=== PATIENT | male | born 1970 | race Caucasian/White ===

== ENCOUNTER → 2018-02-06 10:00 | Outpatient (CLI) | payer BC, SELFPAY ==
--- NOTE | 2018-02-06 10:00 | DT_ITS ---
This patient was seen during an EMR downtime February 03, 2018 - February 10, 2018. This patient may have a combination of paper and electronic documentation or all paper documentation. All documentation is viewable within the e-chart portion of [facility] for each patient visit.
[2018-02-11 03:01] LABS: Anion Gap 7 (5-15); BUN 18 mg/dL (7-18); BUN/Creat Ratio 18.9 RATIO (10-20); Calcium,Total 8.9 mg/dL (8.5-10.1); Chloride 103 mmol/L (98-107); Cholesterol 185 mg/dL (200); Creatinine, Serum 0.95 mg/dL (0.70-1.30); EST Glomerular Filtration Rate 91 mL/min (>60); Est Glom Filt Rate - Afr Amer 110 mL/min (>60); Glucose 88 mg/dL (74-106); High Density Lipoprotein 33 mg/dL; Sodium Level 138 mmol/L (136-145); Triglycerides 416 mg/dL; Very Low Density Lipoprotein 83 mg/dL (5-40)
== END ==
PROVIDERS: Family Provider Family Medicine; PCP Family Medicine; Visit Provider Family Medicine
DX: I10 Essential (primary) hypertension (principal)
CPT/HCPCS: 36415; 80048; 80061

== ENCOUNTER 2019-05-05 05:26 | Observation (INO) | payer OTHER, SELFPAY ==
[2019-05-05] VITALS (12 sets, daily range): BP systolic 107–175; BP diastolic 62–100; PULSE 54–98; RESP 14–18; TEMP 36.3–37.2; O2SAT 9–100; BMI 40.4; BMI 40.2
--- NOTE | 2019-05-05 05:37 | ED.DCSUM_ITS ---
History of Present Illness Chief Complaint: Abd Pain Informant: Patient Narrative: Stated approximately 5 and half hours ago around midnight when he was sleeping he went to use the restroom and felt some abdominal cramping mid abdomen. No nausea vomiting or diarrhea. He said normal bowel movements. No fevers or chills. It actually feels better to push on the area. He tried some Pepto- Bismol but would not go away so he came in for further evaluation. He does not have any pain over his gallbladder. Is never had a previous abdominal surgery. Current severity is mild to moderate. Nothing makes it worse. History of irritable bowel syndrome but does not normally get abdominal pains Past Medical History - Allergies and Home Meds Allergies/Adverse Reactions: Allergies meloxicam [From Mobic] Allergy (Verified 09/24/16 08:33) Hives Penicillins Allergy (Verified 09/24/16 08:33) Unknown Primary Care Physician: Denver Miner MD [Primary Care Provider] - Prior records reviewed: Yes Past Medical History: - - Irritable bowel syndrome, high cholesterol Surgical History: noncontributory Lives: Spouse/ Significant Other Smoking Status: Never smoker Alcohol: None Drugs: None Review of Systems General: Denies: Chills, Fever, Sweats Eyes: Denies: Visual changes - bilaterally, Diplopia ENT: Denies: Rhinorrhea, Sore throat Cardiovascular: Denies: Chest pain, Palpitations Respiratory: Denies: Dyspnea, Cough, Dyspnea on exertion Gastrointestinal: Reports: Abdominal pain. Denies: Nausea, Vomiting, Diarrhea, Melena, Hematochezia Genitourinary: Denies: Dysuria, Hematuria, Frequency Musculoskeletal: Denies: Back pain, Extremity Pain Skin: Denies: Rash, Wounds Neurological: Denies: Headache, Weakness, Numbness Physical Exam Vital Signs/Narrative: Vital Signs Temp Pulse Resp BP Pulse Ox 05/05/19 05:27 98.9 F 69 16 175/100 H 97 General: Well nourished, Well developed, No Acute Distress Head: Normocephalic, Atraumatic Eyes: Perrl, EOMI ENT: Moist mucous membranes, No rhinorrhea Neck: Supple, Nontender Cardiovascular: Regular rate, Regular rhythm, No murmurs Respiratory: No distress, CTA bilaterally, Chest nontender Abdomen: Soft, Nontender, Nondistended, Normal bowel sounds Back: Nontender, Normal Inspection Extremities: Nontender, No edema Skin: Normal color, No rash Neurological: Alert, Oriented x3, Cranial nerves II-XII grossly intact, Normal Strength, Normal Sensation Psychological: Normal affect, Normal Mood Diagnostic/Tx/Re-eval - Medical Decision Making Patient's physical exam is normal without any reproducible abdominal tenderness. Lab work obtained. Given a dose of Toradol for discomfort. Has a leukocytosis left shift. Rest of his lab work unremarkable. CT M and pelvis shows acute appendicitis. Discussed with radiology. Given Cipro and Flagyl as he has a penicillin allergy. Patient did feel better after treatment. Will be discussed with surgery and admitted for acute appendicitis ED Disposition - Plan for ED Patient: Disposition: [facility] Diagnosis: Appendicitis Referrals: Denver Miner MD [Primary Care Provider] -
[2019-05-05 05:44] LABS: Absolute Lymphocyte Count 1.87 X10^3/uL (0.83-4.51); Absolute Neutrophil Count 11.4 X10^3/uL (2.0-7.7); Basophil# 0.09 X10^3/uL; Basophil% 0.6 % (0-1); Eosinophil# 0.22 X10^3/uL; Eosinophils% 1.5 % (0-5); Hematocrit 41.2 % (40-54); Hemoglobin 13.9 g/dL (13.0-16.5); Lymphocyte # 1.87 X10^3/ul (4.0); Mean Corp Hgb Conc 33.7 g/dL (32-36); Mean Corpuscular Hgb 31.4 pg (27.0-32.0); Mean Corpuscular Volume 93.2 fL (80-94); Mean Platelet Vol. 9.5 fl (6.2-12.0); Monocyte# 0.61 X10^3/uL; Monocyte% 4.3 % (0-10); NRBC Flagged by Analyzer 0 % (0-5); Neutrophil # 11.41 X10^3/uL (2.7-7.7); Neutrophil % 79.6 % (47-70); Platelet Count 367 K/mm3 (150-450); RBC Distribution Width CV 13.3 % (11.6-14.6); RBC Distribution Width SD 45.5 fl (35.1-43.9); Red Blood Count 4.42 M/mm3 (4.6-6.2); White Blood Count 14.3 K/mm3 (4.4-11.0)
[2019-05-05] MEDS: Ketorolac 30 MG/ML Syringe IV (05:53)
[2019-05-05 06:00] LABS: AST(SGOT) 16 U/L (15-37); Alanine Aminotransfer ALT/SGPT 27 U/L (16-61); Albumin, Serum 3.7 g/dL (3.2-5.0); Alkaline Phosphatase 79 U/L (45-117); Anion Gap 7 (5-15); BUN 17 mg/dL (7-18); BUN/Creat Ratio 18.9 RATIO (10-20); Calcium,Total 8.8 mg/dL (8.5-10.1); Chloride 103 mmol/L (98-107); EST Glomerular Filtration Rate 97 mL/min (>60); Est Glom Filt Rate - Afr Amer 117 mL/min (>60); Estimated Creatinine Clearance 99.22 ml/min; Globulin 3.7 g/dL (2.2-4.2); Glucose 122 mg/dL (74-106); Lipase 99 U/L (73-393); Potassium 4.1 mmol/L (3.5-5.1); Protein, Total 7.4 g/dL (6.4-8.2); Sodium Level 138 mmol/L (136-145)
--- NOTE | 2019-05-05 06:13 | CT_ITS ---
We are attempting to reach an attending provider to discuss findings. An addendum with communication details will be sent when the communication is complete. HISTORY: ABDOMEN PAIN AND CRAMPING SINCE MIDNIGHT,PT TOOK PEPTO BISMOL WITH NO RELIEF,ELEVATED WBCHX:HTN,IBS ADDITIONAL HISTORY: None provided. TECHNIQUE: CT images were obtained of the abdomen and pelvis without IV contrast. Enteric contrast was not given. Number of images including paperwork: 543. A radiation dose optimization technique was used for this scan. COMPARISON: None FINDINGS: Evaluation of the abdominopelvic organs is limited in the absence of contrast. LOWER THORAX: No consolidation or pleural effusion. LIVER: Decreased hepatic density consistent with steatosis. Enlarged, right lobe about 18 cm craniocaudal. GALLBLADDER: No radiopaque calculi. BILE DUCTS: No significant biliary dilatation. SPLEEN: Mildly enlarged, 13 cm craniocaudal. PANCREAS: Unremarkable. ADRENAL GLANDS: Unremarkable. KIDNEYS/URETERS: Nonobstructing 4 mm right renal calculus. No ureteral calculus or hydronephrosis. BOWEL: No bowel obstruction. No significant bowel wall thickening. Colonic diverticulosis. Small fat density area in the third to fourth portion of the duodenum may be related to a lipoma or less likely bowel content. APPENDIX: Enlarged appendix measuring up to 16 mm with mild surrounding stranding. No localized fluid collection. FREE FLUID: No significant free fluid. FREE AIR: None. LYMPH NODES: No pathologic appearing adenopathy. PERITONEUM, RETROPERITONEUM AND MESENTERY: Otherwise unremarkable. VASCULATURE: Atherosclerotic calcification. ABDOMINAL WALL: Unremarkable. PELVIS: Unremarkable bladder. OSSEOUS AND SOFT TISSUE STRUCTURES: No acute skeletal findings. CT/Abdomen/Pelvis without Cont IMPRESSION: 1. Acute appendicitis. 2. Colonic diverticulosis. 3. Nonobstructing right renal calculus. 4. Hepatosplenomegaly. 5. Hepatic steatosis. Individualized dose optimization techniques were used for this CT. at 0647 Reported and signed by: Selena Fischer MD Electronically Signed: Selena Fischer MD at 6:46 EDT Tel , Service support ,
--- NOTE | 2019-05-05 07:03 | NURSING ---
DR GUERRERO IN ROOM
--- NOTE | 2019-05-05 07:12 | NURSING ---
[facility] APPENDICIT[facility]
[2019-05-05] MEDS: Ciprofloxacin 400 MG/200 ML BAG 200 MG IV (07:17)
--- NOTE | 2019-05-05 08:00 | HP.PCM_ITS ---
Problem List (1) Appendicitis Status: Acute Qualifiers: Appendicitis type: acute appendicitis Acute appendicitis type: unspecified acute appendicitis type Qualified Code(s): K35.80 - Unspecified acute appendicitis History of Present Illness Date of Admission: 05/05/19 The patient is a 48 year old M who presents with abdominal pain. He reports abdominal pain started yesterday and it was all throughout his mid abdomen. He notes some nausea but no vomiting. No fevers or chills. Past Medical History Allergies meloxicam [From Mobic] Allergy (Verified 09/24/16 08:33) Hives Penicillins Allergy (Verified 09/24/16 08:33) Unknown Home Medications: Ambulatory Orders Medication Instructions Recorded Lisinopril/Hydrochlorothiazide 25 mg PO DAILY 08/14/14 [Lisinopril-Hctz 20-25 mg Tab] Gemfibrozil [Lopid] 600 mg PO BIDAC 11/19/14 Eluxadoline [Viberzi] 100 mg PO BID 05/05/19 Gentamicin Sulfate 1 drp LEFT EYE Q2H 05/05/19 Valacyclovir HCl [Valtrex] 1,000 mg PO DAILY 05/05/19 Surgical History: no surgical history Lives: Spouse/ Significant Other Smoking Status: Never smoker Alcohol: None Drugs: None - *Family History Maternal History Items: No pertinent history Review of Systems Constitutional: Denies: Anorexia, Fever HEENT: Denies: Difficulty Swallowing Cardiovascular: Denies: Chest Pain, Claudication Respiratory: Denies: Cough, Shortness of Breath Gastrointestinal: Reports: Abdominal Pain, Nausea. Denies: Diarrhea, Hematemesis, Hematochezia, Vomiting Genitourinary: Denies: Dysuria, Frequency Neurological: Denies: Balance problems Psychiatric: Denies: Anxiety, Depression Hematologic/ Lymphatic: Denies: Anemia VTE Information - Inpt Only VTE Present on Admission: No VTE Mechan Device Prophylaxis: SCD's Patient Problems: Active and Suspected Problems Appendicitis (Acute) - Physical Exam General: Alert, Oriented x3 Neck: No JVD Lungs: Normal air movement Cardiovascular: Regular rate, Regular Rhythm Abdomen: Soft, Non-Distended, Tender - Mild tenderness in the lower abdomen Extremities: No clubbing Skin: No rashes Musculoskeletal: No Muscle Wasting Neurological: Cranial nerves II-XII grossly intact Psych/Mental Status: Normal Affect Vital Signs Temp Pulse Resp BP Pulse Ox 98.9 F 68 14 107/62 98 05/05/19 05:27 05/05/19 07:19 05/05/19 07:19 05/05/19 07:19 05/05/19 07:19 Oxygen Delivery Method Room Air Weight: 265 lb 6.985 oz Body Mass Index (BMI) 40.4 Finger Stick Blood Glucose 98 Laboratory Tests Past 24 Hrs 05/05/19 05/05/19 05:35 05:35 WBC 14.3 H RBC 4.42 L Hgb 13.9 Hct 41.2 MCV 93.2 MCH 31.4 MCHC 33.7 RDW Std Deviation 45.5 H RDW Coeff of Haydee 13.3 Plt Count 367 MPV 9.5 Immature Gran % (Auto) 1.000 H Neut % (Auto) 79.6 H Lymph % (Auto) 13.0 L Cooke % (Auto) 4.3 Eos % (Auto) 1.5 Baso % (Auto) 0.6 Absolute Neuts (auto) 11.4 H Absolute Lymphs (auto) 1.87 Nucleated RBC % 0 Sodium 138 Potassium 4.1 Chloride 103 Carbon Dioxide 28.0 Anion Gap 7 BUN 17 Creatinine 0.90 Estim Creat Clear Calc 99.22 Est GFR (MDRD) Af Amer 117 Est GFR (MDRD) Non-Af 97 BUN/Creatinine Ratio 18.9 Glucose 122 H Calcium 8.8 Total Bilirubin 0.30 AST 16 ALT 27 Alkaline Phosphatase 79 Total Protein 7.4 Albumin 3.7 Globulin 3.7 Albumin/Globulin Ratio 1.0 Lipase 99 Clinical Impression(s) from Imaging Studies Abdomen/Pelvis CT 05/05/19 06:13 IMPRESSION: 1. Acute appendicitis. 2. Colonic diverticulosis. 3. Nonobstructing right renal calculus. 4. Hepatosplenomegaly. 5. Hepatic steatosis. Individualized dose optimization techniques were used for this CT. at 0647 Reported and signed by: Selena Fischer MD Electronically Signed: Selena Fischer MD at 6:46 EDT Tel , Service support , Assessment/Plan All Active Problems Appendicitis (Acute) 48-year-old male with acute appendicitis 1. Patient had abdominal pain and elevated white count with left shift. CT scan revealed enlarged appendix with periappendiceal stranding. Patient likely has acute appendicitis. At this time he is not having much abdominal pain. He was given Cipro and Flagyl in the emergency room. I plan to take in this afternoon for laparoscopic appendectomy. I discussed the surgery with the patient in detail. I discussed the risks including but not limited to bleeding, infection, injury to surrounding organs such as the colon, lateral, ureter, and small bowel. Patient understands risks as well to proceed with surgery. I will place him in MedSurg until surgery on IV fluids and keep n.p.o. Evans Mike MD Pager: [facility] [address] [place] [address], [address] [place] [address] Office:
[2019-05-05] MEDS: 0.9% Normal Saline 1,000 ML 125 ML IV (08:42)
[2019-05-05] MEDS: Morphine 2 MG/ML Syringe IV (09:05)
[2019-05-05] MEDS: metroNIDAZOLE 500 MG/100 ML BAG 100 MG IV (09:07)
--- NOTE | 2019-05-05 09:25 | EKG12_ITS ---
Test Reason : PRE-OP Blood Pressure : / mmHG Vent. Rate : 051 BPM Atrial Rate : 051 BPM P-R Int : 146 ms QRS Dur : 076 ms QT Int : 452 ms P-R-T Axes : 016 039 021 degrees QTc Int : 416 ms Sinus bradycardia with sinus arrhythmia Otherwise normal ECG When compared with ECG of 24-SEP-2016 08:51, No significant change was found Confirmed by JAMAL GONZALEZ ([id number]), publishing editor MEL TURCIOS ([id number]) on 05/07/2019 1:54:24 PM Referred By: YOLANDA Confirmed By:JAMAL GONZALEZ
--- NOTE | 2019-05-05 09:37 | PCA ---
gave pt chlorahex bath for surgery later today
--- NOTE | 2019-05-05 11:05 | PCA ---
PT OFF FLOOR
--- NOTE | 2019-05-05 12:35 | APP_PTH ---
PATIENT: MEGAN CHANEY LOC: MS3 U#:[id number] AGE/SX: 48/M ROOM: MS317 RE05/05/[address]: Dr. Evans Mike MD : 1970 BED: 1 DIS: 05/06/2019 SPEC #: [id number] RECD: 05/05/19 13:20 STATUS: EMI RECassidy #: [id number] TIFFANIE: 05/05/19 12:[address]: Evans Mike DEPT: SURGICAL PATHOLOGY RECD BY: Bhargav Ambriz ENTERED: 05/05/19 13:26 SP TYPE: APPENDIX OTHR DR: Dr. Denver Miner MD Tissues: Appendix, NOS Procedures: Surgery Specimen Level III HEADER OPERATION: Laparoscopic appendectomy PRE-OP DIAGNOSIS: Acute appendicitis TISSUE SUBMITTED: Appendix MICROSCOPIC DIAGNOSIS Appendix, appendectomy: Acute appendicitis. Acute serositis. AM:kofi 05/06/19 MICROSCOPIC DESCRIPTION Slides are reviewed. GROSS DESCRIPTION Received is one container labeled with the patient's name and designated appendix. The specimen consists of an appendix measuring 6 cm in length and up to 1.5 cm in diameter. The attached periappendiceal adipose tissue measures 1 cm in width. The serosa is congested. No obvious perforation is identified. The lumen contains fecal material. No fecalith is identified. Stencil Cutter Machine sections are submitted in one cassette. / SJ:rg 05/05/19 TC:2 CPT: 53141
[2019-05-05] MEDS: Bupiv/Epi 0.25% 30 ML Vial (12:40)
[2019-05-05] MEDS: Sugammadex Sodium 200 MG/2 ML VIAL IV (12:44)
--- NOTE | 2019-05-05 12:52 | OP.PCM_ITS ---
Problem List (1) Appendicitis Status: Acute Qualifiers: Appendicitis type: acute appendicitis Acute appendicitis type: unspecified acute appendicitis type Qualified Code(s): K35.80 - Unspecified acute appendicitis Report of Operation Date of Procedure: 05/05/19 Pre-Operative Diagnosis: Acute appendicitis Post-Operative Diagnosis: Same Surgery/Procedure Performed:: Laparoscopic appendectomy Description of Surgical Findings:: Inflamed appendix with seropurulent discharge Description of Procedure: The patient was brought into the operating room and general anesthesia was induced. The left arm was tucked and the abdomen was prepped and draped in usual sterile fashion. A small midline incision was made superior to the umbilicus and deepened to the level of the fascia. The fascia was elevated and incised. The peritoneum was also elevated and incised. A finger sweep was performed and a balloon trocar was placed into the abdomen and inflated. The abdomen was insufflated to 15 mmHg and the camera was inserted and the abdomen was inspected for any injuries upon entering the abdomen. There were none. The patient was placed in Trendelenburg position and a 5 mm ports placed in the left lower quadrant and suprapubic areas under direct visualization. Next using atraumatic bowel graspers the appendix was identified. The appendix was inflamed at the tip. The appendix was grasped and elevated and a harmonic scalpel was used to take down the mesoappendix. A stapler was used to come across the base of the appendix. The appendix was then placed in Endo Catch bag and removed through the umbilical incision. The staple line was inspected and found to be hemostatic and intact. The 2 5 mm ports are removed under direct visualization. The balloon trocar was deflated and removed and all the air was removed from the abdomen. The umbilical incision fascia was closed with an 0 Vicryl [id number] suture. The incisions were then irrigated with saline and dried. Local anesthetic was injected into the incision sites. The skin incisions were then closed with interrupted 4-0 Monocryl suture and Steri- Strips. Bandages were applied and the patient was awoken and taken to PACU in stable condition. Patient tolerated the procedure well.
[2019-05-05] MEDS: Lactated Ringers 1,000 ML 100 ML IV (13:28)
--- NOTE | 2019-05-05 13:36 | PCA ---
pt off floor
[2019-05-05] MEDS: 0.9% Normal Saline 1,000 ML 60 ML IV (14:02)
[2019-05-05] MEDS: Acetaminophen 325 MG Tablet 650 MG PO ×2 (16:06→21:49)
[2019-05-05] MEDS: Pantoprazole Sodium 40 MG Tablet PO (16:07)
[2019-05-05] MEDS: Lisinopril 20 MG Tablet PO (16:07)
[2019-05-05] MEDS: oxyCODONE 5 MG Tablet PO ×2 (18:16→21:49)
[2019-05-05] MEDS: prednisoLONE eye drops (5 mL) 1 DROP OPTH.BTL 1 DRP LEFT EYE (21:49)
[2019-05-05] MEDS: Docusate Sodium 100 MG Capsule PO (21:49)
[2019-05-06 04:21] VITALS: BP 101/53; PULSE 60; RESP 16; TEMP 36.6; O2SAT 98
[2019-05-06] MEDS: 0.9% Normal Saline 1,000 ML 60 ML IV (05:54)
--- NOTE | 2019-05-06 08:26 | DCINST_ITS ---
Discharge Diet: Light diet - advance as tolerated Discharge Activity: May Not Drive - for 3-5 days or while taking narcotic pain meds. May shower in (days): 1 Call your doctor if your incision/area has: Continuous Slow Oozing, Sudden Increased Bleeding, Increased Pain/ Swelling, Increased Redness, Foul Smelling Discharge Call your doctor if you observe: Fever of 101 or Higher Suture Line Care: Avoid Pulling/Pushing, Avoid Pinching/Bending Additional Dressing/Incision Instructions:: Keep dressing clean and dry. Change or remove dressing in 2 days. Leave steri strips for 1 week. May protect with a gauze bandaid. Medications to take at Discharge Lisinopril/Hydrochlorothiazide [Lisinopril-Hctz 20-25 mg Tab] 25 mg PO DAILY 08/14/14 Gemfibrozil [Lopid] 600 mg PO BIDAC 11/19/14 Eluxadoline [Viberzi] 100 mg PO BID 05/05/19 Valacyclovir HCl [Valtrex] 1,000 mg PO DAILY 05/05/19 prednisoLONE eye drops (5 mL) [Pred Forte eye drops (5 mL)] 1 drp LEFT EYE BID 05/05/19 Oxycodone [Oxyir] 5 - 10 mg PO Q4H PRN PRN 4 Days #20 tablet 05/06/19 Allergies/Adverse Reactions: Allergies meloxicam [From Mobic] Allergy (Verified 09/24/16 08:33) Hives Penicillins Allergy (Verified 09/24/16 08:33) Unknown The following prescriptions were given: Oxycodone [Oxyir] 5 - 10 mg PO Q4H PRN PRN 4 Days #20 tablet PRN Reason: Severe Pain (6-06/11) Transmission Status: Sent to [facility] Primary Care Physician: Denver Miner MD [Primary Care Provider] - Test Results: Test results from this visit will be discussed in further detail at your follow- up appointment, if applicable. Please Follow Up With: Evans Mike MD When: Please call to schedule 2 week follow up appointment. [phone]
[2019-05-06 08:39] VITALS: BP 125/79; PULSE 69; RESP 18; TEMP 36.8; O2SAT 98
--- NOTE | 2019-05-06 09:10 | PCM.WORK.EX ---
Work/School Excuse Work/School Excuse for:: Patient Please excuse this person from:: Work From: 05/05/19 through: 05/07/19 Restrictions: Light Duty - May return to light duty on 05/08. no lifting over 20 lbs, may return to regular duty after follow up in 2 weeks.
[2019-05-06 09:30] VITALS: BP 125/79; PULSE 69; RESP 18; TEMP 36.8; O2SAT 98
== END 2019-05-06 09:30 | disposition home or self-care (01) ==
LOC: ED 06:51 → MS3 07:26
PROVIDERS: Admitting Provider Surgery; Emergency Provider Emergency Medicine; Family Provider Family Medicine; PCP Family Medicine; Visit Provider Surgery
PROC: 0DTJ4ZZ Resection of Appendix, Percutaneous Endoscopic Approach (ICD-10-PCS; CPT 44970; principal; 2019-05-05 12:15)
DX: K35.80 Unspecified acute appendicitis (principal); K58.9 Irritable bowel syndrome, unspecified; E78.00 Pure hypercholesterolemia, unspecified; Z79.899 Other long term (current) drug therapy; Z79.52 Long term (current) use of systemic steroids; I10 Essential (primary) hypertension
CPT/HCPCS: 44970; 74176; 80053; 83690; 85025; 88304; 93005; 96365; 96366; 96375; 99218; 99284; J7030; J7050; J7120; A4216; C1760; G0378; J0744; J2405

== ENCOUNTER → 2019-08-25 09:42 | Outpatient (CLI) | payer OTHER, SELFPAY ==
[2019-05-05 11:33] VITALS: BMI 40.2
[2019-08-25 12:31] LABS: Anion Gap 6 (5-15); BUN 17 mg/dL (7-18); BUN/Creat Ratio 18.3 RATIO (10-20); Calcium,Total 8.7 mg/dL (8.5-10.1); Chloride 103 mmol/L (98-107); Cholesterol 135 mg/dL (200); Creatinine, Serum 0.93 mg/dL (0.70-1.30); EST Glomerular Filtration Rate 93 mL/min (>60); Est Glom Filt Rate - Afr Amer 112 mL/min (>60); Glucose 114 mg/dL (74-106); High Density Lipoprotein 31 mg/dL; Potassium 4.2 mmol/L (3.5-5.1); Sodium Level 135 mmol/L (136-145); Triglycerides 220 mg/dL; Very Low Density Lipoprotein 44 mg/dL (5-40)
== END ==
PROVIDERS: Family Provider Family Medicine; PCP Family Medicine; Visit Provider Family Medicine
DX: E78.5 Hyperlipidemia, unspecified (principal); I10 Essential (primary) hypertension
CPT/HCPCS: 36415; 80048; 80061

== ENCOUNTER → 2020-02-19 16:09 | Outpatient (CLI) | payer OTHER, SELFPAY ==
[2019-05-05 11:33] VITALS: BMI 40.2
[2020-02-19 18:34] LABS: Anion Gap 7 (5-15); BUN 26 mg/dL (7-18); BUN/Creat Ratio 26.4 RATIO (10-20); Calcium,Total 9.2 mg/dL (8.5-10.1); Chloride 103 mmol/L (98-107); Cholesterol 153 mg/dL (200); Creatinine, Serum 0.98 mg/dL (0.70-1.30); EST Glomerular Filtration Rate 87 mL/min (>60); Est Glom Filt Rate - Afr Amer 105 mL/min (>60); Glucose 95 mg/dL (74-106); High Density Lipoprotein 38 mg/dL; Potassium 3.7 mmol/L (3.5-5.1); Sodium Level 137 mmol/L (136-145); Triglycerides 195 mg/dL; Very Low Density Lipoprotein 39 mg/dL (5-40)
[2020-02-26 12:33] LABS: ALB/GLOB Ratio 1.3 RATIO (0.9-2.4); AST(SGOT) 24 U/L (15-37); Alanine Aminotransfer ALT/SGPT 29 U/L (16-61); Albumin, Serum 3.9 g/dL (3.2-5.0); Alkaline Phosphatase 62 U/L (45-117); Anion Gap 5 (5-15); BUN 18 mg/dL (7-18); BUN/Creat Ratio 17.8 RATIO (10-20); Calcium,Total 8.9 mg/dL (8.5-10.1); Chloride 105 mmol/L (98-107); Creatinine, Serum 1.01 mg/dL (0.70-1.30); EST Glomerular Filtration Rate 84 mL/min (>60); Est Glom Filt Rate - Afr Amer 102 mL/min (>60); Glucose 87 mg/dL (74-106); PSA,Total- Diagnostic 3.66 ng/mL (0.0-4.0); Potassium 3.8 mmol/L (3.5-5.1); Protein, Total 6.9 g/dL (6.4-8.2); Sodium Level 141 mmol/L (136-145)
== END ==
LOC: MFPLAB 16:10
PROVIDERS: PCP Family Medicine; Visit Provider Family Medicine
DX: I10 Essential (primary) hypertension (principal); R68.82 Decreased libido
CPT/HCPCS: 36415; 80048; 80053; 80061; 84153; 84403

== ENCOUNTER → 2020-02-26 15:12 | Outpatient (CLI) | payer OTHER, SELFPAY ==
[2019-05-05 11:33] VITALS: BMI 40.2
== END ==
PROVIDERS: PCP Family Medicine; Visit Provider Family Medicine
DX: E29.1 Testicular hypofunction (principal)
CPT/HCPCS: 36415; 84403

== ENCOUNTER → 2020-03-29 16:25 | Outpatient (CLI) | payer OTHER, SELFPAY ==
[2019-05-05 11:33] VITALS: BMI 40.2
== END ==
LOC: MFPLAB 16:26
PROVIDERS: PCP Family Medicine; Referring Provider Family Medicine; Visit Provider Family Medicine
DX: E29.1 Testicular hypofunction (principal)
CPT/HCPCS: 36415; 84403

== ENCOUNTER → 2020-05-28 09:26 | Outpatient (CLI) | payer OTHER, SELFPAY ==
[2019-05-05 11:33] VITALS: BMI 40.2
--- NOTE | 2020-05-28 10:00 | MRI_ITS ---
STUDY: MRI LEFT SHOULDER REASON FOR EXAM: Male, 49 years old. LEFT shoulder pain, bicep tear s/p lifting injury 2 days ago TECHNIQUE: Standardized fat and water weighted pulse sequences were obtained in all 3 orthogonal planes. COMPARISON: None. FINDINGS: Tendinosis of the supraspinatus with humeral surface distal tendon tear, series 6 image .. Normal infraspinatus tendon. Normal subscapularis tendon. Normal teres minor tendon. Normal supraspinatus muscle. Normal infraspinatus muscle. Normal subscapularis muscle. Normal teres minor muscle. Normal glenohumeral articulation. There is small joint effusion. There is fluid in the biceps tendon sheath. Normal humeral head and visualized proximal humerus. Tear at the biceps labral complex. Subluxation and retraction of the intracapsular long biceps tendon. Tear of the superior labrum Normal capsulo- ligamentous complex. Normal rotator interval. 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 There is a Type II morphology (curved) acromion, with a neutral orientation. There is no subacromial-subdeltoid bursal fluid. Normal visualized coracohumeral and coracoacromial ligaments. Normal quadrilateral space. Normal axillary space. Normal deltoid muscle. Normal trapezius muscle. MRI/Upper Ext Joint Only(Routine) IMPRESSION: Partial tear of the supraspinatus tendon. No full-thickness rotator cuff tear. Tear at the biceps anchor with subluxation and retraction of the long head of the biceps. Tear of the superior labrum. Electronically Signed: Jerrod Rob MD at 15:48 EDT , Service support ,
--- NOTE | 2020-05-28 10:45 | MRI_ITS ---
STUDY: MRI UPPER EXTREMITY LEFT HUMERUS WITHOUT CONTRAST REASON FOR EXAM: Male, 49 years old. LEFT proximal bicep tear LEFT shoulder pain, s/p lifting injury 2 days ago TECHNIQUE: Standardized fat and water weighted pulse sequences were obtained in all 3 orthogonal planes. COMPARISON: None. FINDINGS: Normal subcutis adipose space. There is no demonstrated solid, cystic, or lipomatous mass within the subcutaneous adipose space. Tear of the biceps anchor with subluxation of the long head of the biceps tendon from the bicipital groove and retraction to the proximal shaft of the humerus. There is fluid and edema at the musculotendinous junction. Normal visualized neurovascular bundles. Normal humerus. There is no fracture seen. MRI/Upper Ext/No Jt/ wo IMPRESSION: Tear of the proximal long head of the biceps tendon. Fluid and edema at the musculotendinous junction. Electronically Signed: Jerrod Rob MD at 15:51 EDT , Service support ,
== END ==
PROVIDERS: PCP Family Medicine; Referring Provider Family Medicine; Visit Provider Family Medicine
DX: S43.402A Unspecified sprain of left shoulder joint, initial encounter (principal); S46.212A Strain of muscle, fascia and tendon of other parts of biceps, left arm, initial encounter; M75.102 Unspecified rotator cuff tear or rupture of left shoulder, not specified as traumatic; X58.XXXA Exposure to other specified factors, initial encounter; Y93.9 Activity, unspecified; Y92.9 Unspecified place or not applicable; Y99.9 Unspecified external cause status
CPT/HCPCS: 73218; 73221

== ENCOUNTER → 2021-03-07 08:41 | Outpatient (CLI) | payer OTHER, SELFPAY ==
[2019-05-05 11:33] VITALS: BMI 40.2
[2021-03-07 10:50] LABS: Anion Gap 6 (5-15); BUN 21 mg/dL (7-18); BUN/Creat Ratio 20.8 RATIO (10-20); Calcium,Total 9.1 mg/dL (8.5-10.1); Chloride 99 mmol/L (98-107); Cholesterol 159 mg/dL (200); Creatinine, Serum 1.01 mg/dL (0.70-1.30); EST Glomerular Filtration Rate 84 mL/min (>60); Est Glom Filt Rate - Afr Amer 101 mL/min (>60); Glucose 97 mg/dL (74-106); High Density Lipoprotein 34 mg/dL; Potassium 3.9 mmol/L (3.5-5.1); Sodium Level 135 mmol/L (136-145); Thyroid Stim Hormone (TSH) 2.18 uIU/mL (0.358-3.74); Triglycerides 283 mg/dL; Very Low Density Lipoprotein 57 mg/dL (5-40)
== END ==
LOC: MFPLAB 08:43
PROVIDERS: PCP Family Medicine; Visit Provider Family Medicine
DX: I10 Essential (primary) hypertension (principal); E78.5 Hyperlipidemia, unspecified; E29.1 Testicular hypofunction; E66.9 Obesity, unspecified
CPT/HCPCS: 36415; 80048; 80061; 84403; 84443

== ENCOUNTER → 2021-04-27 10:18 | Outpatient (CLI) | payer OTHER, SELFPAY | LOC: MFPLAB 10:19 | PROVIDERS: PCP Family Medicine; Visit Provider Family Medicine | DX: E29.1 Testicular hypofunction (principal) | CPT/HCPCS: 36415; 84403 ==

== ENCOUNTER → 2021-08-23 15:42 | Outpatient (CLI) | payer OTHER, SELFPAY ==
[2021-08-23 17:52] LABS: Anion Gap 11 (5-15); BUN 23 mg/dL (7-18); BUN/Creat Ratio 26.1 RATIO (10-20); Calcium,Total 9.3 mg/dL (8.5-10.1); Chloride 103 mmol/L (98-107); Cholesterol 158 mg/dL (200); Creatinine, Serum 0.88 mg/dL (0.70-1.30); EST Glomerular Filtration Rate 98 mL/min (>60); Est Glom Filt Rate - Afr Amer 118 mL/min (>60); Glucose 96 mg/dL (74-106); High Density Lipoprotein 33 mg/dL; Sodium Level 138 mmol/L (136-145); Triglycerides 316 mg/dL; Very Low Density Lipoprotein 63 mg/dL (5-40)
== END ==
LOC: MFPLAB 15:43
PROVIDERS: PCP Family Medicine; Referring Provider Family Medicine; Visit Provider Family Medicine
DX: I10 Essential (primary) hypertension (principal); E29.1 Testicular hypofunction
CPT/HCPCS: 36415; 80048; 80061; 84403

== ENCOUNTER 2021-09-18 17:43 | Outpatient (CLI) | payer OTHER, SELFPAY | END 2021-09-18 23:59 | disposition short-term general hospital (02) | PROVIDERS: PCP Family Medicine; Visit Provider Family Medicine | DX: U07.1 COVID-19 (principal) | CPT/HCPCS: 87635; U0003; U0005 ==

== ENCOUNTER 2021-10-04 16:27 | Outpatient (CLI) | payer OTHER, SELFPAY ==
[2021-10-07 07:16] LABS: Testosterone Free 37.2 pg/mL (6.8-21.5)
== END 2021-10-04 23:59 | disposition short-term general hospital (02) ==
LOC: MFPLAB 16:29
PROVIDERS: PCP Family Medicine; Referring Provider Family Medicine; Visit Provider Family Medicine
DX: E29.1 Testicular hypofunction (principal)
CPT/HCPCS: 36415; 84402

== ENCOUNTER 2021-10-10 16:15 | Outpatient (CLI) | payer OTHER, SELFPAY | END 2021-10-10 23:59 | disposition home or self-care (01) | LOC: MFPLAB 16:17 | PROVIDERS: PCP Family Medicine; Referring Provider Family Medicine; Visit Provider Family Medicine | DX: E29.1 Testicular hypofunction (principal) | CPT/HCPCS: 36415; 84403 ==

== ENCOUNTER 2022-02-21 16:40 | Emergency (ER) | payer OTHER, SELFPAY ==
[2022-02-21 16:42] VITALS: BP 139/90; PULSE 79; RESP 14; TEMP 36.6; O2SAT 97; BMI 40.0
--- NOTE | 2022-02-21 17:03 | EDS_ITS ---
HPI History of Present Illness Chief Complaint: Chest Pain Informant: patient Narrative Narrative: 51-year-old male presenting to the emergency department chief complaint of chest and back pain. He states that this morning at around 9:00 he began to have pain just medial to his left scapula. States he also feels it in the anterior chest. It is worse when he takes a very deep breath. It is worse when he turns his head and bends it forward to the left. Is also worse when he arches his back. He notes a history of hypertension as well as dyslipidemia. No nausea vomiting shortness of breath. No DVT PE risk factors. [facility] Medical History (Updated 02/21/22 @ 18:[address] Eitan Land DO) Hypertension Home Medications lisinopril 20 mg-hydrochlorothiazide 25 mg tablet 1 tab PO DAILY 08/14/14 [History Last Taken Unknown] gemfibrozil 600 mg tablet 600 mg PO BIDAC 11/19/14 [History Last Taken Unknown] Allergy/AdvReac Type Severity Reaction Status Date / Time meloxicam [From [facility]] Allergy Hives Verified 02/21/22 16:41 Penicillins Allergy Unknown Verified 02/21/22 16:41 Social History (Updated 02/21/22 @ 17:[address] Eitan Land DO) Smoking Status: Never smoker substance use type: does not use ROS ROS ED Constitutional Constitutional ED: Denies chills or weight loss Eyes Eyes: Denies change in vision or diplopia ENT ENT ED: Denies ear pain, rhinorrhea or sore throat Cardiovascular Cardiovascular: Reports chest pain; Denies orthopnea, palpitations or racing heartbeat Respiratory/Chest Respiratory/Chest: Denies cough, dyspnea or orthopnea Gastrointestinal Gastrointestinal: Denies abdominal pain, diarrhea, nausea or vomiting Genitourinary Genitourinary ED: Denies dysuria, hematuria or urinary frequency Musculoskeletal Musculoskeletal: Reports back pain; Denies arthralgias or myalgias Integumentary Denies abscess or rash Neurologic Neurologic: Reports paresthesias LUE (Left middle and ring finger with lifting); Denies headache(s) or weakness Psychiatric Psychiatric: Denies anxiety, depression, suicidal ideation or suicidal thoughts Endocrine Endocrinology: Denies polydipsia, polyphagia or polyuria Allergic/Immunologic Allergic/Immunologic ED: Denies mouth swelling, tongue swelling or urticaria EXAM Physical Exam Const Vital Signs: 02/21/22 16:42 02/21/22 17:39 02/21/22 17:39 Temperature 98 F Temperature Source Temporal Pulse Rate 79 71 Respiratory Rate 14 12 Respiratory Effort Normal Non-Labored Blood Pressure 139/90 H 129/89 H Blood Pressure Mean 106 102 Pulse Ox 97 99 Oxygen Delivery Method Room Air Room Air Positive well nourished and well developed General Appearance ED: well developed HEENT Reports normocephalic, head/scalp atraumatic and moist mucous membranes Eyes PERRL and EOMs intact bilaterally Neck no lymphadenopathy, supple and no JVD Resp normal respiratory effort and clear to auscultation bilaterally Cardio regular rate, regular rhythm and no murmurs GI normal to inspection, nondistended, normoactive bowel sounds and non-tender Palpation: soft Back/Spine no CVA tenderness and normal ROM Extremity normal to inspection General Extremety ED: Negative for edema General Extremity: Negative for edema Neuro oriented x3 and CN's II-XII intact bilaterally Sensorium / Orientation: alert Motor Exam: strength 5/5 throughout Psych mental status grossly normal Mood & Affect: Negative for depressed or tearful Skin no rashes or lesions noted and no wounds Heart Score History: Slightly/Non-Suspicious ECG: Normal Age: >45 - <65 years Risk Factors: >/= 3 Risk Factors or History of CAD Troponin: </= Normal Limit Score: 3 MDM MDM MDM Narrative Medical decision making narrative: D-dimer is normal at 0.39. Troponin of 4. My interpretation of the chest x-ray is no acute process. His EKG is reassuring. Based on the positional nature of the pain where it is located I think this is most likely musculoskeletal. Patient is comfortable being discharged having follow-up return if worsening or concerns Lab Data Attestation: I reviewed the patient's lab results. Labs: Laboratory Results - last 24 hr 02/21/22 02/21/22 02/21/22 17:09 17:09 17:09 WBC 10.2 RBC 4.25 L Hgb 13.0 Hct 38.4 L MCV 90.4 MCH 30.6 MCHC 33.9 RDW Std Deviation 45.8 H RDW Coeff of [place] 14.0 Plt Count 345 MPV 9.1 Immature Gran % (Auto) 0.900 Neut % (Auto) 67.8 Lymph % (Auto) 19.7 [place] % (Auto) 8.2 Eos % (Auto) 2.7 Baso % (Auto) 0.7 Absolute Neuts (auto) 6.9 Absolute Lymphs (auto) 2.02 Nucleated RBC % 0 D-Dimer Quant (PE/DVT) 0.39 Sodium 137 Potassium 3.7 Chloride 105 Carbon Dioxide 27.0 Anion Gap 5 BUN 17 Creatinine 0.79 Estim Creat Clear Calc 109.43 Est GFR (MDRD) Af Amer 134 Est GFR (MDRD) Non-Af 111 BUN/Creatinine Ratio 21.6 H Glucose 93 Calcium 8.8 Troponin I High Sens 4 EKG Initial EKG: Attestation: I personally reviewed and interpreted this EKG as follows: Comments: Normal sinus rhythm with a ventricular rate of 76 bpm. No features of ACS noted Discharge Plan Triage Chief Complaint: Chest Pain ED Provider: Eitan Land Dx/Rx/DC Orders Clinical Impression: Chest pain, Back pain Instructions: ED Chest Pain, Noncardiac Prescriptions: No Action lisinopril-hydrochlorothiazide 1 EACH tablet 1 tab PO DAILY Label Comments: 20/ 25 MG DOSE gemfibrozil 600 MG tablet 600 mg PO BIDAC Primary Care Provider: Denver Miner Referrals: Denver Miner MD [Primary Care Provider] - As Needed Disposition Disposition: Home, Self Care
--- NOTE | 2022-02-21 17:03 | EKG12_ITS ---
Test Reason : CHEST PAIN Blood Pressure : / mmHG Vent. Rate : 076 BPM Atrial Rate : 076 BPM P-R Int : 164 ms QRS Dur : 078 ms QT Int : 374 ms P-R-T Axes : 036 042 032 degrees QTc Int : 420 ms Normal sinus rhythm Normal ECG Confirmed by HOSSEIN ZAMORANO, MURTAZA ([id number]), offline editor USHA HERNÁNDEZ ([id number]) on 02/23/2022 11:33:35 AM Referred By: TEJA Confirmed By:MURTAZA CATALAN MD
[2022-02-21 17:16] LABS: Absolute Lymphocyte Count 2.02 X10^3/uL (0.83-4.51); Absolute Neutrophil Count 6.9 X10^3/uL (2.0-7.7); Basophil# 0.07 X10^3/uL; Basophil% 0.7 % (0-1); Eosinophil# 0.28 X10^3/uL; Eosinophils% 2.7 % (0-5); Hematocrit 38.4 % (40-54); Lymphocyte # 2.02 X10^3/ul (0.83-4.51); Lymphocyte % 19.7 % (19-41); Mean Corp Hgb Conc 33.9 g/dL (32-36); Mean Corpuscular Hgb 30.6 pg (27.0-32.0); Mean Corpuscular Volume 90.4 fL (80-94); Mean Platelet Vol. 9.1 fl (6.2-12.0); Monocyte# 0.84 X10^3/uL; Monocyte% 8.2 % (0-10); NRBC Flagged by Analyzer 0 % (0-5); Neutrophil # 6.94 X10^3/uL (2.7-7.7); Neutrophil % 67.8 % (47-70); Platelet Count 345 K/mm3 (150-450); RBC Distribution Width SD 45.8 fl (35.1-43.9); Red Blood Count 4.25 M/mm3 (4.6-6.2); White Blood Count 10.2 K/mm3 (4.4-11.0)
[2022-02-21 17:28] LABS: D-Dimer Quantitative (DVT/PE) 0.39 FEU/ug/m (0.27-0.49)
[2022-02-21] MEDS: Ketorolac 30 MG/ML Syringe IV (17:29)
[2022-02-21 17:34] LABS: Anion Gap 5 (5-15); BUN 17 mg/dL (7-18); BUN/Creat Ratio 21.6 RATIO (10-20); Calcium,Total 8.8 mg/dL (8.5-10.1); Chloride 105 mmol/L (98-107); Creatinine, Serum 0.79 mg/dL (0.70-1.30); EST Glomerular Filtration Rate 111 mL/min (>60); Est Glom Filt Rate - Afr Amer 134 mL/min (>60); Estimated Creatinine Clearance 109.43 ml/min; Glucose 93 mg/dL (74-106); Potassium 3.7 mmol/L (3.5-5.1); Sodium Level 137 mmol/L (136-145); Troponin-I HS 4 pg/mL (3.0-78.0)
[2022-02-21 17:39] VITALS: BP 129/89; PULSE 71; RESP 12; O2SAT 99
--- NOTE | 2022-02-21 17:45 | RAD_ITS ---
STUDY: X-RAY CHEST REASON FOR EXAM: Male, 51 years old. Chest pain TECHNIQUE: Single frontal view of the chest. COMPARISON: September 24, 2016 FINDINGS: The lungs are clear and expanded. There is no demonstrated pleural abnormality. Normal size heart. Normal mediastinum and jacky. Normal visualized pulmonary arteries. Normal visualized aortic arch and descending thoracic aorta. Normal visualized thoracic spine. Normal visualized ribs, clavicles, and shoulders. There is no demonstrated abnormality of the visualized soft tissue structures of the upper abdomen. RAD/Chest 1 View (Portable) IMPRESSION: Normal x-ray examination of the chest. Electronically Signed: Jerrod Rob MD at 18:24 EDT ,
[2022-02-21 18:27] VITALS: BP 131/75; PULSE 77; RESP 20; O2SAT 98
== END 2022-02-21 18:27 | disposition home or self-care (01) ==
PROVIDERS: Emergency Provider Emergency Medicine; PCP Family Medicine; Visit Provider Emergency Medicine
DX: R07.9 Chest pain, unspecified (principal); M54.9 Dorsalgia, unspecified; I10 Essential (primary) hypertension; E78.5 Hyperlipidemia, unspecified; Z79.899 Other long term (current) drug therapy
CPT/HCPCS: 71045; 80048; 84484; 85025; 85379; 93005; 96374; 99284; A4216

== ENCOUNTER → 2022-03-06 | Outpatient (CLI) | payer OTHER, SELFPAY ==
[2022-03-06 10:01] LABS: Absolute Lymphocyte Count 1.89 X10^3/uL (0.83-4.51); Absolute Neutrophil Count 5.6 X10^3/uL (2.0-7.7); Basophil# 0.09 X10^3/uL; Basophil% 1.1 % (0-1); Eosinophils% 2.3 % (0-5); Hematocrit 41.6 % (40-54); Hemoglobin 13.7 g/dL (13.0-16.5); Lymphocyte # 1.89 X10^3/ul (0.83-4.51); Lymphocyte % 22.1 % (19-41); Mean Corp Hgb Conc 32.9 g/dL (32-36); Mean Corpuscular Hgb 31.2 pg (27.0-32.0); Mean Corpuscular Volume 94.8 fL (80-94); Mean Platelet Vol. 9.5 fl (6.2-12.0); Monocyte# 0.64 X10^3/uL; Monocyte% 7.5 % (0-10); NRBC Flagged by Analyzer 0 % (0-5); Neutrophil # 5.63 X10^3/uL (2.7-7.7); Neutrophil % 65.7 % (47-70); Platelet Count 365 K/mm3 (150-450); RBC Distribution Width CV 13.4 % (11.6-14.6); Red Blood Count 4.39 M/mm3 (4.6-6.2); White Blood Count 8.6 K/mm3 (4.4-11.0)
[2022-03-06 10:44] LABS: Anion Gap 5 (5-15); BUN 18 mg/dL (7-18); BUN/Creat Ratio 21.6 RATIO (10-20); Calcium,Total 9.6 mg/dL (8.5-10.1); Chloride 104 mmol/L (98-107); Cholesterol 143 mg/dL (200); Creatinine, Serum 0.84 mg/dL (0.70-1.30); EST Glomerular Filtration Rate 104 mL/min (>60); Est Glom Filt Rate - Afr Amer 126 mL/min (>60); Glucose 112 mg/dL (74-106); High Density Lipoprotein 41 mg/dL; Potassium 4.2 mmol/L (3.5-5.1); Sodium Level 138 mmol/L (136-145); Triglycerides 148 mg/dL; Very Low Density Lipoprotein 30 mg/dL (5-40)
== END | disposition home or self-care (01) ==
LOC: MFPLAB 09:37
PROVIDERS: PCP Family Medicine; Visit Provider Family Medicine
DX: I10 Essential (primary) hypertension (principal); E29.1 Testicular hypofunction
CPT/HCPCS: 36415; 80048; 80061; 84403; 85025

== ENCOUNTER → 2022-04-25 | Outpatient (CLI) | payer OTHER, SELFPAY | END | disposition home or self-care (01) | LOC: MFPLAB 15:25 | PROVIDERS: PCP Family Medicine; Referring Provider Family Medicine; Visit Provider Family Medicine | DX: E29.1 Testicular hypofunction (principal) | CPT/HCPCS: 36415; 84403 ==

== ENCOUNTER → 2022-06-04 | Outpatient (CLI) | payer OTHER, SELFPAY | END | disposition home or self-care (01) | LOC: MFPLAB 15:27 | PROVIDERS: PCP Family Medicine; Visit Provider Family Medicine | DX: N52.9 Male erectile dysfunction, unspecified (principal) | CPT/HCPCS: 36415; 84403 ==

== ENCOUNTER → 2022-08-31 | Outpatient (CLI) | payer OTHER, SELFPAY ==
[2022-08-31 10:22] LABS: Absolute Lymphocyte Count 2.15 X10^3/uL (0.83-4.51); Absolute Neutrophil Count 5.2 X10^3/uL (2.0-7.7); Basophil# 0.06 X10^3/uL; Basophil% 0.7 % (0-1); Eosinophil# 0.19 X10^3/uL; Eosinophils% 2.3 % (0-5); Hematocrit 47.8 % (40-54); Hemoglobin 15.7 g/dL (13.0-16.5); Lymphocyte # 2.15 X10^3/ul (0.83-4.51); Lymphocyte % 25.7 % (19-41); Mean Corp Hgb Conc 32.8 g/dL (32-36); Mean Corpuscular Hgb 30.1 pg (27.0-32.0); Mean Corpuscular Volume 91.7 fL (80-94); Monocyte# 0.71 X10^3/uL; Monocyte% 8.5 % (0-10); NRBC Flagged by Analyzer 0 % (0-5); Neutrophil % 62.1 % (47-70); Platelet Count 345 K/mm3 (150-450); RBC Distribution Width CV 12.8 % (11.6-14.6); RBC Distribution Width SD 43.6 fl (35.1-43.9); Red Blood Count 5.21 M/mm3 (4.6-6.2); White Blood Count 8.4 K/mm3 (4.4-11.0)
[2022-08-31 10:30] LABS: ALB/GLOB Ratio 1.1 RATIO (0.9-2.4); AST(SGOT) 22 U/L (15-37); Alanine Aminotransfer ALT/SGPT 41 U/L (16-61); Albumin, Serum 3.6 g/dL (3.2-5.0); Alkaline Phosphatase 62 U/L (45-117); Anion Gap 6 (5-15); BUN 21 mg/dL (7-18); BUN/Creat Ratio 24.4 RATIO (10-20); Calcium,Total 8.9 mg/dL (8.5-10.1); Chloride 103 mmol/L (98-107); Cholesterol 146 mg/dL (200); Creatinine, Serum 0.86 mg/dL (0.70-1.30); EST Glomerular Filtration Rate 100 mL/min (>60); Est Glom Filt Rate - Afr Amer 121 mL/min (>60); Globulin 3.4 g/dL (2.2-4.2); Glucose 127 mg/dL (74-106); High Density Lipoprotein 34 mg/dL; Potassium 3.9 mmol/L (3.5-5.1); Sodium Level 136 mmol/L (136-145); Triglycerides 268 mg/dL; Very Low Density Lipoprotein 54 mg/dL (5-40)
== END | disposition home or self-care (01) ==
LOC: MFPLAB 08:41
PROVIDERS: PCP Family Medicine; Referring Provider Family Medicine; Visit Provider Family Medicine
DX: E78.5 Hyperlipidemia, unspecified (principal)
CPT/HCPCS: 36415; 80053; 80061; 84403; 85025

== ENCOUNTER → 2022-10-17 | Outpatient (CLI) | payer OTHER, SELFPAY | END | disposition home or self-care (01) | LOC: MFPLAB 15:17 | PROVIDERS: PCP Family Medicine; Referring Provider Family Medicine; Visit Provider Family Medicine | DX: E29.1 Testicular hypofunction (principal) | CPT/HCPCS: 36415; 84403 ==

== ENCOUNTER → 2022-11-28 | Outpatient (CLI) | payer OTHER, SELFPAY ==
[2022-11-28 18:18] LABS: Absolute Lymphocyte Count 2.37 X10^3/uL (0.83-4.51); Absolute Neutrophil Count 6.5 X10^3/uL (2.0-7.7); Basophil# 0.09 X10^3/uL; Basophil% 0.9 % (0-1); Eosinophil# 0.23 X10^3/uL; Eosinophils% 2.3 % (0-5); Hematocrit 47.1 % (40-54); Hemoglobin 15.6 g/dL (13.0-16.5); Lymphocyte # 2.37 X10^3/ul (0.83-4.51); Lymphocyte % 23.8 % (19-41); Mean Corp Hgb Conc 33.1 g/dL (32-36); Mean Corpuscular Hgb 30.2 pg (27.0-32.0); Mean Corpuscular Volume 91.3 fL (80-94); Mean Platelet Vol. 10.1 fl (6.2-12.0); Monocyte# 0.73 X10^3/uL; Monocyte% 7.3 % (0-10); NRBC Flagged by Analyzer 0 % (0-5); Neutrophil % 65.3 % (47-70); Platelet Count 345 K/mm3 (150-450); RBC Distribution Width CV 12.6 % (11.6-14.6); RBC Distribution Width SD 42.2 fl (35.1-43.9); Red Blood Count 5.16 M/mm3 (4.6-6.2)
[2022-11-28 18:53] LABS: PSA,Total- Diagnostic 0.27 ng/mL (0.0-4.0)
== END | disposition home or self-care (01) ==
LOC: MFPLAB 16:10
PROVIDERS: PCP Family Medicine; Referring Provider Family Medicine; Visit Provider Family Medicine
DX: N52.9 Male erectile dysfunction, unspecified (principal)
CPT/HCPCS: 36415; 84153; 84403; 85025

== ENCOUNTER → 2023-01-10 | Outpatient (CLI) | payer OTHER, SELFPAY | END | disposition home or self-care (01) | LOC: MFPLAB 15:25 | PROVIDERS: PCP Family Medicine; Visit Provider Family Medicine | DX: N52.9 Male erectile dysfunction, unspecified (principal) | CPT/HCPCS: 36415; 84403 ==

== ENCOUNTER → 2023-02-23 | Outpatient (CLI) | payer OTHER, SELFPAY ==
[2023-02-23 08:31] LABS: ALB/GLOB Ratio 0.8 RATIO (0.9-2.4); AST(SGOT) 29 U/L (15-37); Alanine Aminotransfer ALT/SGPT 44 U/L (16-61); Albumin, Serum 3.3 g/dL (3.2-5.0); Alkaline Phosphatase 55 U/L (45-117); Anion Gap 3 (5-15); BUN 15 mg/dL (7-18); BUN/Creat Ratio 15.3 RATIO (10-20); Calcium,Total 9.2 mg/dL (8.5-10.1); Chloride 103 mmol/L (98-107); Cholesterol 120 mg/dL (200); Creatinine, Serum 0.98 mg/dL (0.70-1.30); EST Glomerular Filtration Rate 86 mL/min (>60); Est Glom Filt Rate - Afr Amer 104 mL/min (>60); Glucose 120 mg/dL (74-106); High Density Lipoprotein 24 mg/dL; Potassium 4.1 mmol/L (3.5-5.1); Protein, Total 7.3 g/dL (6.4-8.2); Sodium Level 136 mmol/L (136-145); Triglycerides 244 mg/dL; Very Low Density Lipoprotein 49 mg/dL (5-40)
== END | disposition home or self-care (01) ==
LOC: LAB 07:44
PROVIDERS: PCP Family Medicine; Referring Provider Family Medicine; Visit Provider Family Medicine
DX: I10 Essential (primary) hypertension (principal)
CPT/HCPCS: 36415; 80053; 80061

== ENCOUNTER → 2023-06-06 | Outpatient (CLI) | payer OTHER, SELFPAY ==
[2023-06-06 18:27] LABS: Anion Gap 6 (5-15); BUN 20 mg/dL (7-18); BUN/Creat Ratio 21.1 RATIO (10-20); Calcium,Total 9.4 mg/dL (8.5-10.1); Chloride 106 mmol/L (98-107); Cholesterol 160 mg/dL (200); Creatinine, Serum 0.95 mg/dL (0.70-1.30); EST Glomerular Filtration Rate 89 mL/min (>60); Est Glom Filt Rate - Afr Amer 108 mL/min (>60); Glucose 97 mg/dL (74-106); High Density Lipoprotein 32 mg/dL; Potassium 3.7 mmol/L (3.5-5.1); Sodium Level 140 mmol/L (136-145); Triglycerides 506 mg/dL
== END | disposition home or self-care (01) ==
LOC: MFPLAB 16:50
PROVIDERS: PCP Family Medicine; Visit Provider Family Medicine
DX: I10 Essential (primary) hypertension (principal)
CPT/HCPCS: 36415; 80048; 80061

== ENCOUNTER → 2023-06-14 | Outpatient (CLI) | payer OTHER, SELFPAY ==
[2023-06-14 10:40] LABS: Cholesterol 150 mg/dL (200); High Density Lipoprotein 34 mg/dL; Triglycerides 316 mg/dL; Very Low Density Lipoprotein 63 mg/dL (5-40)
== END | disposition home or self-care (01) ==
LOC: MFPLAB 09:26
PROVIDERS: PCP Family Medicine; Visit Provider Family Medicine
DX: E78.5 Hyperlipidemia, unspecified (principal)
CPT/HCPCS: 36415; 80061

== ENCOUNTER → 2023-09-16 | Outpatient (CLI) | payer OTHER, SELFPAY ==
[2023-09-16 17:37] LABS: Absolute Lymphocyte Count 2.39 X10^3/uL (0.83-4.51); Absolute Neutrophil Count 8.8 X10^3/uL (2.0-7.7); Basophil# 0.09 X10^3/uL; Basophil% 0.7 % (0-1); Eosinophils% 1.6 % (0-5); Hematocrit 47.7 % (40-54); Hemoglobin 16.6 g/dL (13.0-16.5); Lymphocyte # 2.39 X10^3/ul (0.83-4.51); Lymphocyte % 19.2 % (19-41); Mean Corp Hgb Conc 34.8 g/dL (32-36); Mean Corpuscular Volume 91.9 fL (80-94); Mean Platelet Vol. 10.2 fl (6.2-12.0); Monocyte# 0.93 X10^3/uL; Monocyte% 7.5 % (0-10); NRBC Flagged by Analyzer 0 % (0-5); Neutrophil # 8.77 X10^3/uL (2.7-7.7); Neutrophil % 70.5 % (47-70); Platelet Count 381 K/mm3 (150-450); RBC Distribution Width CV 12.3 % (11.6-14.6); RBC Distribution Width SD 41.4 fl (35.1-43.9); Red Blood Count 5.19 M/mm3 (4.6-6.2); White Blood Count 12.4 K/mm3 (4.4-11.0)
[2023-09-16 18:19] LABS: Anion Gap 7 (5-15); BUN 18 mg/dL (7-18); BUN/Creat Ratio 20.5 RATIO (10-20); Calcium,Total 9.4 mg/dL (8.5-10.1); Chloride 103 mmol/L (98-107); Cholesterol 150 mg/dL (200); Creatinine, Serum 0.88 mg/dL (0.70-1.30); EST Glomerular Filtration Rate 97 mL/min (>60); Est Glom Filt Rate - Afr Amer 118 mL/min (>60); Glucose 127 mg/dL (74-106); High Density Lipoprotein 29 mg/dL; PSA,Total- Diagnostic 0.22 ng/mL (0.0-4.0); Potassium 3.7 mmol/L (3.5-5.1); Sodium Level 138 mmol/L (136-145); Triglycerides 532 mg/dL
== END | disposition home or self-care (01) ==
LOC: MFPLAB 16:38
PROVIDERS: PCP Family Medicine; Visit Provider Family Medicine
DX: E29.1 Testicular hypofunction (principal); I10 Essential (primary) hypertension
CPT/HCPCS: 36415; 80048; 80061; 84153; 84403; 85025

== ENCOUNTER → 2023-12-14 | Outpatient (CLI) | payer OTHER, SELFPAY ==
[2023-12-14 09:38] LABS: Absolute Lymphocyte Count 1.89 X10^3/uL (0.83-4.51); Absolute Neutrophil Count 7.2 X10^3/uL (2.0-7.7); Basophil# 0.09 X10^3/uL; Basophil% 0.9 % (0-1); Eosinophil# 0.15 X10^3/uL; Eosinophils% 1.5 % (0-5); Hematocrit 49.7 % (40-54); Hemoglobin 16.5 g/dL (13.0-16.5); Lymphocyte # 1.89 X10^3/ul (0.83-4.51); Lymphocyte % 18.9 % (19-41); Mean Corp Hgb Conc 33.2 g/dL (32-36); Mean Corpuscular Hgb 30.8 pg (27.0-32.0); Mean Corpuscular Volume 92.9 fL (80-94); Mean Platelet Vol. 9.4 fl (6.2-12.0); Monocyte# 0.64 X10^3/uL; Monocyte% 6.4 % (0-10); NRBC Flagged by Analyzer 0 % (0-5); Neutrophil # 7.18 X10^3/uL (2.7-7.7); Neutrophil % 71.7 % (47-70); Platelet Count 311 K/mm3 (150-450); RBC Distribution Width CV 14.2 % (11.6-14.6); RBC Distribution Width SD 47.8 fl (35.1-43.9); Red Blood Count 5.35 M/mm3 (4.6-6.2)
[2023-12-14 10:26] LABS: Anion Gap 4 (5-15); BUN 18 mg/dL (7-18); BUN/Creat Ratio 18.6 RATIO (10-20); Calcium,Total 9.2 mg/dL (8.5-10.1); Chloride 104 mmol/L (98-107); Cholesterol 137 mg/dL (200); Creatinine, Serum 0.97 mg/dL (0.70-1.30); EST Glomerular Filtration Rate 87 mL/min (>60); Est Glom Filt Rate - Afr Amer 105 mL/min (>60); Glucose 122 mg/dL (74-106); High Density Lipoprotein 28 mg/dL; PSA,Total - Annual Screen 0.48 ng/mL (0.00-4.00); Potassium 3.9 mmol/L (3.5-5.1); Sodium Level 135 mmol/L (136-145); Triglycerides 297 mg/dL; Very Low Density Lipoprotein 59 mg/dL (5-40)
== END | disposition home or self-care (01) ==
LOC: MTLAB 08:59 → LAB 09:00
PROVIDERS: PCP Family Medicine; Referring Provider Family Medicine; Visit Provider Family Medicine
DX: E29.1 Testicular hypofunction (principal); I10 Essential (primary) hypertension
CPT/HCPCS: 36415; 80048; 80061; 84153; 84403; 85025; G0103

== ENCOUNTER → 2024-05-30 | Outpatient (CLI) | payer OTHER, SELFPAY ==
[2024-05-30 08:58] LABS: Absolute Lymphocyte Count 2.36 X10^3/uL (0.83-4.51); Absolute Neutrophil Count 6.4 X10^3/uL (2.0-7.7); Eosinophil# 0.21 X10^3/uL; Eosinophils% 2.1 % (0-5); Hematocrit 49.9 % (40-54); Hemoglobin 16.4 g/dL (13.0-16.5); Lymphocyte # 2.36 X10^3/ul (0.83-4.51); Lymphocyte % 23.7 % (19-41); Mean Corp Hgb Conc 32.9 g/dL (32-36); Mean Corpuscular Volume 91.4 fL (80-94); Monocyte# 0.81 X10^3/uL; Monocyte% 8.1 % (0-10); NRBC Flagged by Analyzer 0 % (0-5); Neutrophil # 6.41 X10^3/uL (2.7-7.7); Neutrophil % 64.4 % (47-70); Platelet Count 361 K/mm3 (150-450); RBC Distribution Width CV 13.1 % (11.6-14.6); RBC Distribution Width SD 43.4 fl (35.1-43.9); Red Blood Count 5.46 M/mm3 (4.6-6.2)
[2024-05-30 09:29] LABS: Anion Gap 5 (5-15); BUN 16 mg/dL (7-18); BUN/Creat Ratio 16.2 RATIO (10-20); Calcium,Total 9.2 mg/dL (8.5-10.1); Chloride 102 mmol/L (98-107); Cholesterol 125 mg/dL (200); Creatinine, Serum 0.98 mg/dL (0.70-1.30); EST Glomerular Filtration Rate 85 mL/min (>60); Est Glom Filt Rate - Afr Amer 103 mL/min (>60); Glucose 115 mg/dL (74-106); High Density Lipoprotein 29 mg/dL; PSA,Total- Diagnostic 0.36 ng/mL (0.0-4.0); Potassium 3.7 mmol/L (3.5-5.1); Sodium Level 136 mmol/L (136-145); Triglycerides 245 mg/dL; Very Low Density Lipoprotein 49 mg/dL (5-40)
== END | disposition home or self-care (01) ==
LOC: LAB 08:20
PROVIDERS: PCP Family Medicine; Referring Provider Family Medicine; Visit Provider Family Medicine
DX: I10 Essential (primary) hypertension (principal); F32.A Depression, unspecified; E29.1 Testicular hypofunction
CPT/HCPCS: 36415; 80048; 80061; 84153; 84403; 84443; 85025

== ENCOUNTER 2024-08-27 15:19 | Emergency (ER) | payer OTHER, SELFPAY ==
[2024-08-27 15:20] VITALS: BP 157/97; PULSE 96; RESP 18; TEMP 37.8; O2SAT 97; BMI 43.4
--- NOTE | 2024-08-27 16:30 | ED.VIS.DENTA ---
HPI History of Present Illness Chief Complaint: Dental Informant: patient and spouse/S.O. Narrative Narrative: Sent from urgent care dental pain and fever. Right upper dental pain started yesterday. He had dental fracture there years ago with rebuilding of the tooth. Has not eaten or drank much due to discomfort. Started having fever. Went to urgent care. Sent here. No cough. No vomiting or diarrhea. No swelling to the face. Pain goes up to this face causing headache. Denies nausea or vomiting. Denies any urinary symptoms. PFSH PFSH Medical History Hypercholesterolemia Hypertension Home Medications ?Medication ?Instructions ?Recorded ?Last Taken ?Type lisinopril 20 1 tab PO DAILY 08/14/14 Unknown History mg-hydrochlorothiazide 25 mg tablet gemfibrozil 600 mg tablet 600 mg PO BIDAC 11/19/14 Unknown History multivitamin 1 tab PO DAILY 08/21/22 Unknown History clindamycin HCl 150 mg capsule 450 mg (3 x 150 mg) PO Q8H #90 08/27/24 Unknown Rx CAPSULES ibuprofen 600 mg tablet 600 mg PO Q6H PRN PRN pain #20 08/27/24 Unknown Rx TABLETS sertraline 50 mg tablet 50 mg PO DAILY 08/27/24 Unknown History Allergy/AdvReac Type Severity Reaction Status Date / Time meloxicam (From [facility]) Allergy Hives Verified 08/21/22 15:33 Penicillins Allergy Unknown Verified 08/21/22 15:33 Family History Mother Hypertension Surgical History History of tonsillectomy History of surgery on arm History of appendectomy Social History Smoking Status: Never smoker substance use type: does not use ROS ROS ED Constitutional Constitutional ED: Reports fever(s); Denies chills or sweats ENT ENT ED: Reports other Details: Dental pain. ; Denies sore throat Cardiovascular Cardiovascular: Denies chest pain, leg edema, palpitations or racing heartbeat Respiratory/Chest Respiratory/Chest: Denies cough, dyspnea or dyspnea on exertion Gastrointestinal Gastrointestinal: Denies abdominal pain, diarrhea, nausea or vomiting Genitourinary Genitourinary ED: Denies dysuria, hematuria or urinary frequency Musculoskeletal Musculoskeletal: Denies back pain, extremity pain or neck pain Integumentary Denies rash or wounds Neurologic Neurologic: Reports headache(s); Denies paresthesias or weakness EXAM Physical Exam Const Vital Signs: 08/27/24 15:20 08/27/24 18:00 Temperature 100.1 F H Temperature Source Oral Pulse Rate 96 93 Respiratory Rate 18 18 Blood Pressure 157/97 H 144/84 H Blood Pressure Mean 117 104 Pulse Ox 97 96 Oxygen Delivery Method Room Air Room Air Positive well nourished and well developed Constitutional Narrative: Nontoxic. General Appearance ED: well developed and NAD HEENT Reports moist mucous membranes HEENT Narrative: Tender to percussion #7 there is previous repair from fracture. There is no focal gum swelling no fluctuance at the gumline. No swelling to the maxillary bone. Airway patent no stridor no sublingual edema. normocephalic and atraumatic Eyes General Eye ED: Yes normal appearance of both eyes Neck full ROM Chest Wall Chest: Negative for tenderness Resp normal respiratory effort and normal air movement Effort and Inspection: symmetric chest movement; Negative for respiratory distress Cardio regular rate, regular rhythm and no murmurs Peripheral Pulses: pulses 2+ throughout GI normal to inspection, nondistended, normoactive bowel sounds and non-tender Palpation: Negative for guarding or rebound tenderness present Extremity normal to inspection General Extremety ED: Negative for edema or tenderness General Extremity: Negative for edema Neuro oriented x3 and no sensory deficits noted Sensorium / Orientation: awake and alert Skin no rashes or lesions noted and no wounds MDM MDM MDM Narrative Medical decision making narrative: Interventions / MDM: Differential diagnosis: Dentalgia, fever Diagnosis considered but do not suspect: No clinical dental abscess My EKG interpretation: N/A Imaging independently reviewed and interpreted by myself: N/A External documents reviewed: N/A Test considered but not ordered:N/A ED course: Nontoxic, temp 100.1. Treated with Motrin and Sunman for pain. Will check COVID flu RSV due to time the year with illnesses. There is no dental abscess seen. Will start clindamycin with penicillin allergy. 1745: States he feels fever breaking. He declined the Sunman. He will continue on clindamycin and Motrin with prescriptions written. He does have a dentist he will call for follow-up. All questions were answered. Re-evaluation: stable Disposition discussed with patient/family/significant other: Patient significant other Case discussed with consulting clinician: N/A This note was generated with [employer] dictation software. It may contain incorrect words, spelling, and punctuation that were not noted in checking the note before signing. Discharge Plan Triage Chief Complaint: Dental ED Provider: Lawson Boyer Dx/Rx/DC Orders Clinical Impression: Dentalgia, Fever Instructions: ED Dental Pain, ED Fever Control (Adult) Prescriptions: New clindamycin HCl 150 mg capsule 450 mg PO Q8H Qty: 90 0RF ibuprofen 600 mg tablet 600 mg PO Q6H PRN PRN (Reason: pain) Qty: 20 0RF No Action multivitamin Tablet 1 tab PO DAILY lisinopril-hydrochlorothiazide 1 EACH tablet 1 tab PO DAILY Patient Comments: 20/ 25 MG DOSE gemfibrozil 600 MG tablet 600 mg PO BIDAC sertraline 50 mg tablet 50 mg PO DAILY Primary Care Provider: Denver Miner Referrals: Denver Miner MD [Primary Care Provider] - Activity Restrictions/Additional Instructions: COVID, flu, RSV negative. Take and finish antibiotic as prescribed. Continue Motrin as needed. Follow-up with your dentist for evaluation of this dental pain. Print Language: Bulgarian Disposition Disposition: Home, Self Care Discharge Date/Time: 08/27/24 18:08
[2024-08-27] MEDS: Ibuprofen 600 MG Tablet PO (16:36)
[2024-08-27] MEDS: Clindamycin HCl 150 MG Capsule 450 MG PO (16:36)
[2024-08-27 18:00] VITALS: BP 144/84; PULSE 93; RESP 18; O2SAT 96
== END 2024-08-27 18:08 | disposition home or self-care (01) ==
PROVIDERS: Emergency Provider Emergency Medicine; PCP Family Medicine; Referring Provider Emergency Medicine; Visit Provider Emergency Medicine
DX: K08.89 Other specified disorders of teeth and supporting structures (principal); R50.9 Fever, unspecified; R51.9 Headache, unspecified; I10 Essential (primary) hypertension; E78.00 Pure hypercholesterolemia, unspecified; Z11.52 Encounter for screening for COVID-19; Z88.0 Allergy status to penicillin; Z79.899 Other long term (current) drug therapy
CPT/HCPCS: 87631; 99282; A4216

== ENCOUNTER 2024-12-21 15:41 | Outpatient (RCR) | payer OTHER, SELFPAY | END 2024-12-30 23:59 | LOC: NS 15:41 | PROVIDERS: PCP Family Medicine; Referring Provider Family Medicine; Visit Provider Family Medicine | DX: Z71.3 Dietary counseling and surveillance (principal); E66.9 Obesity, unspecified; Z68.41 Body mass index [BMI] 40.0-44.9, adult | CPT/HCPCS: 97802 ==

== ENCOUNTER → 2025-01-23 | Outpatient (CLI) | payer OTHER, SELFPAY ==
[2025-01-23 09:06] LABS: Absolute Lymphocyte Count 2.12 X10^3/uL (0.83-4.51); Absolute Neutrophil Count 5.9 X10^3/uL (2.0-7.7); Basophil# 0.08 X10^3/uL; Basophil% 0.9 % (0-1); Eosinophil# 0.17 X10^3/uL; Eosinophils% 1.9 % (0-5); Hemoglobin 16.8 g/dL (13.0-16.5); Lymphocyte # 2.12 X10^3/ul (0.83-4.51); Lymphocyte % 23.7 % (19-41); Mean Corp Hgb Conc 32.9 g/dL (32-36); Mean Corpuscular Hgb 29.9 pg (27.0-32.0); Mean Corpuscular Volume 90.7 fL (80-94); Mean Platelet Vol. 9.6 fl (6.2-12.0); Monocyte# 0.58 X10^3/uL; Monocyte% 6.5 % (0-10); NRBC Flagged by Analyzer 0 % (0-5); Neutrophil # 5.91 X10^3/uL (2.7-7.7); Platelet Count 360 K/mm3 (150-450); RBC Distribution Width CV 13.4 % (11.6-14.6); RBC Distribution Width SD 44.3 fl (35.1-43.9); Red Blood Count 5.62 M/mm3 (4.6-6.2)
[2025-01-23 10:03] LABS: ALB/GLOB Ratio 1.3 RATIO (0.9-2.4); AST(SGOT) 40 U/L (<=37); Alanine Aminotransfer ALT/SGPT 44 U/L (<=46); Albumin, Serum 4.3 g/dL (3.5-5.0); Alkaline Phosphatase 63 U/L (40-129); Anion Gap 12 (5-15); BUN 18 mg/dL (4-19); BUN/Creat Ratio 19.8 RATIO (10-20); Calcium,Total 9.4 mg/dL (7.6-11.0); Carbon Dioxide 24.2 mmol/L (21.0-32.0); Chloride 102 mmol/L (98-108); Cholesterol 149 mg/dL (<=200); Creatinine, Serum 0.92 mg/dL (0.70-1.20); EST Glomerular Filtration Rate 101 (>60); Globulin 3.3 g/dL (2.2-4.2); Glucose 102 mg/dL (70-99); High Density Lipoprotein 27 mg/dL; Low Density Lipoprotein Calc. 64 mg/dL; PSA,Total - Annual Screen 0.41 ng/mL (0.02-4.00); Protein, Total 7.6 g/dL (5.9-8.4); Sodium Level 138 mmol/L (133-145); Total Bilirubin 0.64 mg/dL (0.00-1.30); Triglycerides 287 mg/dL; Very Low Density Lipoprotein 57 mg/dL (5-40); cholesterol:hdl ratio screen 5.48
[2025-01-27 12:08] LABS: Testosterone, % Free 3.42 % (1.50-4.20); Testosterone, Free 30.13 ng/dL (5.00-21.00); Testosterone, Total 881 ng/dL (264-916)
== END | disposition home or self-care (01) ==
LOC: LAB 08:33
PROVIDERS: PCP Family Medicine; Referring Provider Family Medicine; Visit Provider Family Medicine
DX: E29.1 Testicular hypofunction (principal)
CPT/HCPCS: 36415; 80053; 80061; 84153; 84402; 84403; 85025; G0103

== ENCOUNTER 2025-02-02 15:20 | Outpatient (RCR) | payer OTHER, SELFPAY | END 2025-03-01 23:59 | LOC: NS 15:20 | PROVIDERS: PCP Family Medicine; Referring Provider Family Medicine; Visit Provider Family Medicine | DX: Z71.3 Dietary counseling and surveillance (principal); E66.9 Obesity, unspecified; Z68.41 Body mass index [BMI] 40.0-44.9, adult | CPT/HCPCS: 97803 ==

== ENCOUNTER 2025-03-09 15:21 | Outpatient (RCR) | payer OTHER, SELFPAY | END 2025-04-01 23:59 | LOC: NS 15:21 | PROVIDERS: PCP Family Medicine; Referring Provider Family Medicine; Visit Provider Family Medicine | DX: Z71.3 Dietary counseling and surveillance (principal); E66.9 Obesity, unspecified; Z68.41 Body mass index [BMI] 40.0-44.9, adult | CPT/HCPCS: 97803 ==

== ENCOUNTER → 2025-05-29 | Outpatient (CLI) | payer OTHER, SELFPAY ==
--- OUTSIDE RECORDS SUMMARY | 2024-08-27 15:45 | XMS RPT_ITS ---
Author Name Auto Generated Organization [facility] Care Team Providers Care Control Clerk Repairs Name Role Phone MURTAZA IBARRA Primary Care Unavailable AYESHA AMARAL Attending Unavailable MURTAZA IBARRA Primary Care Unavailable PROBLEMS DATE TYPE CONDITION / CODE ATTENDING STATUS [facility] 07/27/2024 Active Umbilical hernia without obstruction or gangrene / K42.9(ICD-10) AYESHA AMARAL Active [facility] 07/27/2024 Active BMI 40.0-44.9, a dult (HCC) / Z68.41(ICD-10) AYESHA AMARAL Active [facility] 07/27/2024 Active Rectus diastasis / M62.08(ICD-10) AYESHA AMARAL Active [facility] PROCEDURES No Procedure Records Found RESULTS PROGRESS Observed: 08/27/2024 3:10 PM Status: COMPLETED Source: [facility] HNO ID: [id number] Author: UBALDO BUITRAGO APRN.STEAM TABLE ATTENDANT Service: ? Author Type: Nurse Practitioner Type: Progress Notes Filed: 08/27/2024 15:15 Note Text: Subjective HPI Nontoxic-appearing male presents urgent care chief complaint possible dental infection. Duration of symptoms 2 days. Associated symptoms right sided upper dental pain facial swelling and redness fever. States has noticed increased facial swelling. Has had increase pain traveling up to orbital area. Has been using Orajel this has not helped. Denies any difficulty swallowing his secretion decreased range of motion of neck or trismus. No elevation of floor of mouth. .Patient presents with: Dental Problem: Tooth infection on upper right side of mouth x 2 days PAST MEDICAL HISTORY Diagnosis Date HTN (hypertension) Hyperlipidemia Hypogonadism in male Umbilical hernia 08/13/2022 PAST SURGICAL HISTORY Procedure Laterality Date APPENDECTOMY 2019 REPAIR BICEPS TENDON RUPTURE Right TONSILLECTOMY PRIMARY/SECONDARY <AGE 12 ALLERGIES Bee Venom Protein (Honey Bee), Meloxicam, and Penicillins MEDICATIONS multivit-min/folic/vit K/lycop (MEN'S MULTIVITAMIN ORAL) Take 1 tablet by mouth once daily. sertraline (ZOLOFT) 50 mg tablet Take 1 tablet by mouth every afternoon. testosterone cypionate (DEPO-TESTOSTERONE) 200 mg/mL injection Inject 200 mg intramuscularly every 10 days. sildenafil (VIAGRA) 100 mg tablet Take 100 mg by mouth once daily as needed (other). prednisoLONE acetate (PRED FORTE, ECONOPRED PLUS) 1 % ophthalmic suspension Use 1 Drop in the left eye twice daily. lisinopril-hydrochlorothiazide (PRINZIDE, ZESTORETIC) 20-25 mg per tablet Take 1 tablet by mouth once daily. gemfibrozil (LOPID) 600 mg tablet Take 600 mg by mouth twice daily. CONTRAVE 8-90 mg ER tablet Take 2 tablets by mouth every 12 hours. (Patient not taking: Reported on 08/27/2024) vitamin B complex (B COMPLEX 1 ORAL) Take 1 tablet by mouth once daily. (Patient not taking: Reported on 08/27/2024) valACYclovir (VALTREX) 1 gram tab Take 1 tablet by mouth once daily. (Patient not taking: Reported on 08/27/2024) VIBERZI 100 mg tab TAKE 1 TABLET TWICE DAILY FOR 30 DAYS (Patient not taking: Reported on 08/27/2024) naproxen (NAPROSYN) 500 mg tablet Take 500 mg by mouth twice daily. (Patient not taking: Reported on 08/27/2024) FAMILY HISTORY Problem Relation Age of Onset Hypertension Mother COPD Mother No Known Problems Brother Social History Tobacco Use Smoking status: Former Smokeless tobacco: Former Quit date: 05/2023 Vaping Use Vaping status: Never Used Substance Use Topics Alcohol use: Yes Comment: social Drug use: Never BP 158/78 Pulse 95 Temp (!) 39.2 ?C (102.6 ?F) Resp 22 Wt 131 kg (288 lb 12.8 oz) SpO2 97% BMI 43.91 kg/m? Review of Systems Constitutional: Positive for fever. Negative for chills and malaise/fatigue. HENT: Negative for congestion, ear discharge, ear pain, sinus pain and sore throat. Eyes: Negative for blurred vision, pain, discharge and redness. Respiratory: Negative for cough, hemoptysis, sputum production, shortness of breath, wheezing and stridor. Cardiovascular: Negative for chest pain. Gastrointestinal: Negative for abdominal pain, diarrhea, nausea and vomiting. Musculoskeletal: Negative for myalgias. Skin: Negative for itching and rash. Neurological: Negative for dizziness and headaches. Objective Physical Exam Constitutional: General: He is not in acute distress. Appearance: He is not diaphoretic. HENT: Head: Normocephalic. Jaw: Swelling present. No trismus, tenderness or pain on movement. Comments: Moderate amount of facial swelling noted. Erythema noted. Mouth/Throat: Mouth: Mucous membranes are moist. Dentition: Abnormal dentition. Dental tenderness and dental abscesses present. Pharynx: Oropharynx is clear. Uvula midline. No pharyngeal swelling, oropharyngeal exudate, posterior oropharyngeal erythema or uvula swelling. Eyes: General: Right eye: Discharge present. Conjunctiva/sclera: Conjunctivae normal. Pupils: Pupils are equal, round, and reactive to light. Cardiovascular: Rate and Rhythm: Normal rate and regular rhythm. Heart sounds: Normal heart sounds. Pulmonary: Effort: Pulmonary effort is normal. No tachypnea, accessory muscle usage or respiratory distress. Breath sounds: Normal breath sounds. No stridor. No wheezing, rhonchi or rales. Abdominal: Palpations: Abdomen is soft. Musculoskeletal: Cervical back: Normal range of motion and neck supple. No edema, erythema, rigidity or tenderness. No pain with movement. Normal range of motion. Lymphadenopathy: Cervical: No cervical adenopathy. Skin: General: Skin is warm and dry. Neurological: Mental Status: He is alert and oriented to person, place, and time. ASSESSMENT/PLAN: 1. Fever, unspecified fever cause - ICD9: 780.60, ICD10: R50.9 Moderate amount of facial swelling noted. Sclera was injected. Tenderness with palpation over orbital area. Coupled with fever referred patient to ED to rule out deep space infection. Will be seen at [facility]. Ubaldo Buitrago APRN.HANNAH BERG Observed: 08/27/2024 2:45 PM Status: COMPLETED Source: [facility] Office Visit (WSTR) CHANEYMEGAN WING ([id number]) 1970 M Date Time Provider Department 08/27/24 2:45 PM UBALDO BUITRAGO [facility] During your visit today, we recorded the following information about you: Temperature Pulse Respiration Blood pressure 102.6 degrees 95/minute 22/minute 158/78 Weight 131 kg Ubaldo Buitrago, TRIMMER CLIMBER.STEAM TABLE ATTENDANT 08/27/2024 3:15 PM Signed Subjective HPI Nontoxic-appearing male presents urgent care chief complaint possible dental infection. Duration of symptoms 2 days. Associated symptoms right sided upper dental pain facial swelling and redness fever. States has noticed increased facial swelling. Has had increase pain traveling up to orbital area. Has been using Orajel this has not helped. Denies any difficulty swallowing his secretion decreased range of motion of neck or trismus. No elevation of floor of mouth. .Patient presents with: Dental Problem: Tooth infection on upper right side of mouth x 2 days PAST MEDICAL HISTORY Diagnosis Date HTN (hypertension) Hyperlipidemia Hypogonadism in male Umbilical hernia 08/13/2022 PAST SURGICAL HISTORY Procedure Laterality Date APPENDECTOMY 2019 REPAIR BICEPS TENDON RUPTURE Right TONSILLECTOMY PRIMARY/SECONDARY <AGE 14 ALLERGIES Bee Venom Protein (Honey Bee), Meloxicam, and Penicillins MEDICATIONS multivit-min/folic/vit K/lycop (MEN'S MULTIVITAMIN ORAL) Take 1 tablet by mouth once daily. sertraline (ZOLOFT) 50 mg tablet Take 1 tablet by mouth every afternoon. testosterone cypionate (DEPO-TESTOSTERONE) 200 mg/mL injection Inject 200 mg intramuscularly every 10 days. sildenafil (VIAGRA) 100 mg tablet Take 100 mg by mouth once daily as needed (other). prednisoLONE acetate (PRED FORTE, ECONOPRED PLUS) 1 % ophthalmic suspension Use 1 Drop in the left eye twice daily. lisinopril-hydrochlorothiazide (PRINZIDE, ZESTORETIC) 20-25 mg per tablet Take 1 tablet by mouth once daily. gemfibrozil (LOPID) 600 mg tablet Take 600 mg by mouth twice daily. CONTRAVE 8-90 mg ER tablet Take 2 tablets by mouth every 12 hours. (Patient not taking: Reported on 08/27/2024) vitamin B complex (B COMPLEX 1 ORAL) Take 1 tablet by mouth once daily. (Patient not taking: Reported on 08/27/2024) valACYclovir (VALTREX) 1 gram tab Take 1 tablet by mouth once daily. (Patient not taking: Reported on 08/27/2024) VIBERZI 100 mg tab TAKE 1 TABLET TWICE DAILY FOR 30 DAYS (Patient not taking: Reported on 08/27/2024) naproxen (NAPROSYN) 500 mg tablet Take 500 mg by mouth twice daily. (Patient not taking: Reported on 08/27/2024) FAMILY HISTORY Problem Relation Age of Onset Hypertension Mother COPD Mother No Known Problems Brother Social History Tobacco Use Smoking status: Former Smokeless tobacco: Former Quit date: 05/2023 Vaping Use Vaping status: Never Used Substance Use Topics Alcohol use: Yes Comment: social Drug use: Never BP 158/78 Pulse 95 Temp (!) 39.2 ?C (102.6 ?F) Resp 22 Wt 131 kg (288 lb 12.8 oz) SpO2 97% BMI 43.91 kg/m? Review of Systems Constitutional: Positive for fever. Negative for chills and malaise/fatigue. HENT: Negative for congestion, ear discharge, ear pain, sinus pain and sore throat. Eyes: Negative for blurred vision, pain, discharge and redness. Respiratory: Negative for cough, hemoptysis, sputum production, shortness of breath, wheezing and stridor. Cardiovascular: Negative for chest pain. Gastrointestinal: Negative for abdominal pain, diarrhea, nausea and vomiting. Musculoskeletal: Negative for myalgias. Skin: Negative for itching and rash. Neurological: Negative for dizziness and headaches. Objective Physical Exam Constitutional: General: He is not in acute distress. Appearance: He is not diaphoretic. HENT: Head: Normocephalic. Jaw: Swelling present. No trismus, tenderness or pain on movement. Comments: Moderate amount of facial swelling noted. Erythema noted. Mouth/Throat: Mouth: Mucous membranes are moist. Dentition: Abnormal dentition. Dental tenderness and dental abscesses present. Pharynx: Oropharynx is clear. Uvula midline. No pharyngeal swelling, oropharyngeal exudate, posterior oropharyngeal erythema or uvula swelling. Eyes: General: Right eye: Discharge present. Conjunctiva/sclera: Conjunctivae normal. Pupils: Pupils are equal, round, and reactive to light. Cardiovascular: Rate and Rhythm: Normal rate and regular rhythm. Heart sounds: Normal heart sounds. Pulmonary: Effort: Pulmonary effort is normal. No tachypnea, accessory muscle usage or respiratory distress. Breath sounds: Normal breath sounds. No stridor. No wheezing, rhonchi or rales. Abdominal: Palpations: Abdomen is soft. Musculoskeletal: Cervical back: Normal range of motion and neck supple. No edema, erythema, rigidity or tenderness. No pain with movement. Normal range of motion. Lymphadenopathy: Cervical: No cervical adenopathy. Skin: General: Skin is warm and dry. Neurological: Mental Status: He is alert and oriented to person, place, and time. ASSESSMENT/PLAN: 1. Fever, unspecified fever cause - ICD9: 780.60, ICD10: R50.9 Moderate amount of facial swelling noted. Sclera was injected. Tenderness with palpation over orbital area. Coupled with fever referred patient to ED to rule out deep space infection. Will be seen at [facility]. Ubaldo Buitrago APRN.STEAM TABLE ATTENDANT Allergies As of Date: 08/27/2024 Noted Allergy Reaction BEE VENOM PROTEIN (HONEY BEE) 07/21/2024 16 - Unknown MELOXICAM 09/24/2016 2 - Rash PENICILLINS 09/24/2016 16 - Unknown Date Reviewed: 08/27/2024 Reviewed by: Destiny Andujar MA - Fully Assessed Reason for Visit: Dental Problem [31] Cmt: Tooth infection on upper right side of mouth x 2 days Primary Visit Diagnosis:Fever, unspecified fever cause [R50.9] Prescriptions as of 08/27/2024 - multivit-min/folic/vit K/lycop (MEN'S MULTIVITAMIN ORAL) Take 1 tablet by mouth once daily. - sertraline (ZOLOFT) 50 mg tablet Take 1 tablet by mouth every afternoon. - CONTRAVE 8-90 mg ER tablet Take 2 tablets by mouth every 12 hours. - testosterone cypionate (DEPO-TESTOSTERONE) 200 mg/mL injection Inject 200 mg intramuscularly every 10 days. - sildenafil (VIAGRA) 100 mg tablet Take 100 mg by mouth once daily as needed (other). - vitamin B complex (B COMPLEX 1 ORAL) Take 1 tablet by mouth once daily. - valACYclovir (VALTREX) 1 gram tab Take 1 tablet by mouth once daily. - prednisoLONE acetate (PRED FORTE, ECONOPRED PLUS) 1 % ophthalmic suspension Use 1 Drop in the left eye twice daily. - lisinopril-hydrochlorothiazide (PRINZIDE, ZESTORETIC) 20-25 mg per tablet Take 1 tablet by mouth once daily. - VIBERZI 100 mg tab TAKE 1 TABLET TWICE DAILY FOR 30 DAYS - gemfibrozil (LOPID) 600 mg tablet Take 600 mg by mouth twice daily. - naproxen (NAPROSYN) 500 mg tablet Take 500 mg by mouth twice daily. 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 Office Visit (GENSWS) MEGAN CHANEY ([id number]) 1970 M Date Time Provider Department 07/27/24 4:15 PM AYESHA AMARAL During your visit today, we recorded the following information about you: Temperature Pulse Weight Height 97.4 degrees 100/minute 124.5 kg 1.727 m Ayesha Amaral MD 07/28/2024 1:02 PM Signed Megan Chaney 1970 REFERRING PHYSICIAN: No ref. provider found CHIEF COMPLAINT: (Umbilical hernia) HPI: The patient is a 53 year old male with a complaint of umbilical hernia He states that he has noted this for "years" However, recently, he has noted more discomfort in the area. He denies gastrointestinal and/or urinary obstructive symptoms. He denies previous ventral abdominal surgeries. He had been seen by [facility] surgeon and was told that he should lose weight prior to repair. Patient's BMI is 41. PAST MEDICAL HISTORY Diagnosis Date HTN (hypertension) Hyperlipidemia Hypogonadism in male Umbilical hernia 08/13/2022 PAST SURGICAL HISTORY Procedure Laterality Date APPENDECTOMY 2019 REPAIR BICEPS TENDON RUPTURE Right TONSILLECTOMY PRIMARY/SECONDARY <AGE 14 Current Outpatient Medications Medication Sig multivit-min/folic/vit K/lycop (MEN'S MULTIVITAMIN ORAL) Take 1 tablet by mouth once daily. sertraline (ZOLOFT) 50 mg tablet Take 1 tablet by mouth every afternoon. CONTRAVE 8-90 mg ER tablet Take 2 tablets by mouth every 12 hours. testosterone cypionate (DEPO-TESTOSTERONE) 200 mg/mL injection Inject 200 mg intramuscularly every 10 days. sildenafil (VIAGRA) 100 mg tablet Take 100 mg by mouth once daily as needed (other). vitamin B complex (B COMPLEX 1 ORAL) Take 1 tablet by mouth once daily. lisinopril-hydrochlorothiazide (PRINZIDE, ZESTORETIC) 20-25 mg per tablet Take 1 tablet by mouth once daily. gemfibrozil (LOPID) 600 mg tablet Take 600 mg by mouth twice daily. valACYclovir (VALTREX) 1 gram tab Take 1 tablet by mouth once daily. prednisoLONE acetate (PRED FORTE, ECONOPRED PLUS) 1 % ophthalmic suspension Use 1 Drop in the left eye twice daily. VIBERZI 100 mg tab TAKE 1 TABLET TWICE DAILY FOR 30 DAYS naproxen (NAPROSYN) 500 mg tablet Take 500 mg by mouth twice daily. No current facility-administered medications for this visit. ALLERGIES: Bee Venom Protein (Honey Bee), Meloxicam, and Penicillins PERSONAL HISTORY: Social History Tobacco Use Smoking status: Former Smokeless tobacco: Former Quit date: 05/2023 Vaping Use Vaping status: Never Used Substance Use Topics Alcohol use: Yes Comment: social Drug use: Never FAMILY HISTORY Problem Relation Age of Onset Hypertension Mother COPD Mother No Known Problems Brother The review of systems data was entered by the nurse and reviewed by wa Nursing Notes: Shelbi Durant RN 07/27/2024 4:09 PM Signed REVIEW OF SYSTEMS: General: The patient denies fatigue, denies weight loss, denies weight gain, denies feeling hot, and denies feelings of cold. Eyes: The patient denies glaucoma, denies eye injury/surgery, does not wear glasses or contacts. Ear/Nose/Throat: The patient NOTES allergies, denies hayfever, denies ear infections, and denies bloody noses. Cardiovascular: The patient denies chest pain, denies heart disease, NOTES high blood pressure,denies cardiac stent, denies prior heart attack, denies irregular heart beat, NOTES high cholesterol, denies poor circulation, denies heart failure, other cardiac issues, denies claudication, denies cold feet, denies peripheral arterial stent. Respiratory: The patient denies tuberculosis, denies pneumonia, denies frequent cough, denies pulmonary embolism, denies shortness of breath, and denies coughing up blood. Gastrointestinal: The patient denies difficulty swallowing, denies acid reflux, denies ulcers, denies vomiting, denies jaundice/hepatitis, denies gallbladder problems, denies black or tarry stools, denies hemorrhoids, denies bleeding from rectum, denies diverticulitis, denies constipation, denies diarrhea, denies loss of stool control, and NOTES hernias. Kidney/Bladder: The patient denies kidney stones, denies urine infections, and denies bloody urine. Skin: The patient denies a history of skin cancer, denies bleeding/changing moles, and denies a history of skin rash. Neurologic: The patient denies a history of epilepsy/convulsions, denies headaches, denies head/spinal injuries, and denies stroke/TIA. Psychiatric: The patient denies psychiatric medications, denies depression, and denies voices, denies substance abuse. Endocrine: The patient denies thyroid disorders, denies diabetes, and denies hormonal problems. Hematologic: The patient denies a history of bruising, denies bleeding, and denies anemia, denies blood clots. Infections: The patient denies a history of measles and mumps, denies rheumatic fever, and denies sexually transmitted diseases. Musculoskeletal: The patient denies back pain/injury, denies back problems, denies sciatica, denies knee/foot trouble, denies arthritis, or denies gout. When was patient's last Mammogram screening? N/A Last Colonoscopy: None Shelbi Durant RN PHYSICAL EXAMINATION: General: The patient is 53 year old male, well nourished, well hydrated in no acute distress. The patient is oriented to time, place, and person. VITALS: Pulse 100, temperature 36.3 ?C (97.4 ?F), height 172.7 cm (5' 8"), weight 124.5 kg (274 lb 6.4 oz), SpO2 100%. Body mass index is 41.72 kg/m?. Head: Normal cephalic, atraumatic Eyes: pupils are equally round, sclera are clear/anicteric Neck is supple with no tracheal deviation Cardiac: normal heart sounds, regular Respiratory: Normal respiratory excursion and pattern. Abdominal exam: soft, obese, and benign, rectus diastasis present, reducible umbilical hernia Extremities: no clubbing, cyanosis or edema. Neuro: non focal Psych: normal mood Assessment IMPRESSION: umbilical hernia, morbid obesity PLAN: I have discussed the above with the patient. I have offered umbilical hernia repair, however, I explained to patient that I will not use mesh.. I have explained the procedure to the patient. I have explained that since patient has BMI > 40, he will have a high likelihood of recurrence I have counseled the patient as to the risks of the procedure, including but not limited to: infection, bleeding, injury to any blood vessels/nerves, scar tissue, injury to any intrabdominal organs, injury to bowel/bladder, intraabdominal abscess/bleeding, recurrence of hernia due to patient's body habitus, wound infections, complications of anesthesia, etc. - the patient understands. Patient will think about his options. I have rec'd weight loss, to ensure decreased risk of recurrence. I will place consult to bariatric medicine for evaluation. Patient encouraged to return to clinic if any worsening signs/symptoms The patient acknowledges the above. I have answered all questions to the patient?s satisfaction and the patient has no further questions. I have confirmed and edited as necessary, the PFSH and ROS obtained by others. . Diagnoses: (K42.9) Umbilical hernia without obstruction or gangrene (Z68.41) BMI 40.0-44.9, adult (HCC) (M62.08) Rectus diastasis Medical Decision Making: Problems: Low: Stable chronic illness Risk: Moderate: Moderate risk from testing/treatment Medical Decision Making Level: 3 - Low MD Carleen Covarrubias Rhonda, RN 07/27/2024 4:09 PM Signed REVIEW OF SYSTEMS: General: The patient denies fatigue, denies weight loss, denies weight gain, denies feeling hot, and denies feelings of cold. Eyes: The patient denies glaucoma, denies eye injury/surgery, does not wear glasses or contacts. Ear/Nose/Throat: The patient NOTES allergies, denies hayfever, denies ear infections, and denies bloody noses. Cardiovascular: The patient denies chest pain, denies heart disease, NOTES high blood pressure,denies cardiac stent, denies prior heart attack, denies irregular heart beat, NOTES high cholesterol, denies poor circulation, denies heart failure, other cardiac issues, denies claudication, denies cold feet, denies peripheral arterial stent. Respiratory: The patient denies tuberculosis, denies pneumonia, denies frequent cough, denies pulmonary embolism, denies shortness of breath, and denies coughing up blood. Gastrointestinal: The patient denies difficulty swallowing, denies acid reflux, denies ulcers, denies vomiting, denies jaundice/hepatitis, denies gallbladder problems, denies black or tarry stools, denies hemorrhoids, denies bleeding from rectum, denies diverticulitis, denies constipation, denies diarrhea, denies loss of stool control, and NOTES hernias. Kidney/Bladder: The patient denies kidney stones, denies urine infections, and denies bloody urine. Skin: The patient denies a history of skin cancer, denies bleeding/changing moles, and denies a history of skin rash. Neurologic: The patient denies a history of epilepsy/convulsions, denies headaches, denies head/spinal injuries, and denies stroke/TIA. Psychiatric: The patient denies psychiatric medications, denies depression, and denies voices, denies substance abuse. Endocrine: The patient denies thyroid disorders, denies diabetes, and denies hormonal problems. Hematologic: The patient denies a history of bruising, denies bleeding, and denies anemia, denies blood clots. Infections: The patient denies a history of measles and mumps, denies rheumatic fever, and denies sexually transmitted diseases. Musculoskeletal: The patient denies back pain/injury, denies back problems, denies sciatica, denies knee/foot trouble, denies arthritis, or denies gout. When was patient's last Mammogram screening? N/A Last Colonoscopy: None Shelbi Durant RN Allergies As of Date: 07/27/2024 Noted Allergy Reaction BEE VENOM PROTEIN (HONEY BEE) 07/21/2024 16 - Unknown MELOXICAM 09/24/2016 2 - Rash PENICILLINS 09/24/2016 16 - Unknown Date Reviewed: 07/27/2024 Reviewed by: Shelbi Durant RN - Fully Assessed Reason for Visit: Consult [173] Cmt: Umbilical hernia Visit Diagnoses:Umbilical hernia without obstruction or gangrene [K42.9] BMI 40.0-44.9, adult (HCC) [Z68.41] Rectus diastasis [M62.08] Order(s):[facility] [[id number]] Order #: [id number]: 1 FUTURE Prescriptions as of 07/28/2024 - multivit-min/folic/vit K/lycop (MEN'S MULTIVITAMIN ORAL) Take 1 tablet by mouth once daily. - sertraline (ZOLOFT) 50 mg tablet Take 1 tablet by mouth every afternoon. - CONTRAVE 8-90 mg ER tablet Take 2 tablets by mouth every 12 hours. - testosterone cypionate (DEPO-TESTOSTERONE) 200 mg/mL injection Inject 200 mg intramuscularly every 10 days. - sildenafil (VIAGRA) 100 mg tablet Take 100 mg by mouth once daily as needed (other). - vitamin B complex (B COMPLEX 1 ORAL) Take 1 tablet by mouth once daily. - valACYclovir (VALTREX) 1 gram tab Take 1 tablet by mouth once daily. - prednisoLONE acetate (PRED FORTE, ECONOPRED PLUS) 1 % ophthalmic suspension Use 1 Drop in the left eye twice daily. - lisinopril-hydrochlorothiazide (PRINZIDE, ZESTORETIC) 20-25 mg per tablet Take 1 tablet by mouth once daily. - VIBERZI 100 mg tab TAKE 1 TABLET TWICE DAILY FOR 30 DAYS - gemfibrozil (LOPID) 600 mg tablet Take 600 mg by mouth twice daily. - naproxen (NAPROSYN) 500 mg tablet Take 500 mg by mouth twice daily. 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 Eyes: The patient denies glaucoma, denies eye injury/surgery, does not wear glasses or contacts. Ear/Nose/Throat: The patient NOTES allergies, denies hayfever, denies ear infections, and denies bloody noses. Cardiovascular: The patient denies chest pain, denies heart disease, NOTES high blood pressure,denies cardiac stent, denies prior heart attack, denies irregular heart beat, NOTES high cholesterol, denies poor circulation, denies heart failure, other cardiac issues, denies claudication, denies cold feet, denies peripheral arterial stent. Respiratory: The patient denies tuberculosis, denies pneumonia, denies frequent cough, denies pulmonary embolism, denies shortness of breath, and denies coughing up blood. Gastrointestinal: The patient denies difficulty swallowing, denies acid reflux, denies ulcers, denies vomiting, denies jaundice/hepatitis, denies gallbladder problems, denies black or tarry stools, denies hemorrhoids, denies bleeding from rectum, denies diverticulitis, denies constipation, denies diarrhea, denies loss of stool control, and NOTES hernias. Kidney/Bladder: The patient denies kidney stones, denies urine infections, and denies bloody urine. Skin: The patient denies a history of skin cancer, denies bleeding/changing moles, and denies a history of skin rash. Neurologic: The patient denies a history of epilepsy/convulsions, denies headaches, denies head/spinal injuries, and denies stroke/TIA. Psychiatric: The patient denies psychiatric medications, denies depression, and denies voices, denies substance abuse. Endocrine: The patient denies thyroid disorders, denies diabetes, and denies hormonal problems. Hematologic: The patient denies a history of bruising, denies bleeding, and denies anemia, denies blood clots. Infections: The patient denies a history of measles and mumps, denies rheumatic fever, and denies sexually transmitted diseases. Musculoskeletal: The patient denies back pain/injury, denies back problems, denies sciatica, denies knee/foot trouble, denies arthritis, or denies gout. When was patient's last Mammogram screening? N/A Last Colonoscopy: None Shelbi Durant RN Encounter Status:Closed by AYESHA AMARAL on 07/28/24 PROGRESS Observed: 07/27/2024 4:02 PM Status: COMPLETED Source: [facility] HNO ID: [id number] Author: AYESHA AMARAL MD Service: ? Author Type: Physician Type: Progress Notes Filed: 07/28/2024 13:02 Note Text: Megan Chaney 1970 REFERRING PHYSICIAN: No ref. provider found CHIEF COMPLAINT: (Umbilical hernia) HPI: The patient is a 53 year old male with a complaint of umbilical hernia He states that he has noted this for "years" However, recently, he has noted more discomfort in the area. He denies gastrointestinal and/or urinary obstructive symptoms. He denies previous ventral abdominal surgeries. He had been seen by [facility] surgeon and was told that he should lose weight prior to repair. Patient's BMI is 41. PAST MEDICAL HISTORY Diagnosis Date HTN (hypertension) Hyperlipidemia Hypogonadism in male Umbilical hernia 08/13/2022 PAST SURGICAL HISTORY Procedure Laterality Date APPENDECTOMY 2019 REPAIR BICEPS TENDON RUPTURE Right TONSILLECTOMY PRIMARY/SECONDARY <AGE 14 Current Outpatient Medications Medication Sig multivit-min/folic/vit K/lycop (MEN'S MULTIVITAMIN ORAL) Take 1 tablet by mouth once daily. sertraline (ZOLOFT) 50 mg tablet Take 1 tablet by mouth every afternoon. CONTRAVE 8-90 mg ER tablet Take 2 tablets by mouth every 12 hours. testosterone cypionate (DEPO-TESTOSTERONE) 200 mg/mL injection Inject 200 mg intramuscularly every 10 days. sildenafil (VIAGRA) 100 mg tablet Take 100 mg by mouth once daily as needed (other). vitamin B complex (B COMPLEX 1 ORAL) Take 1 tablet by mouth once daily. lisinopril-hydrochlorothiazide (PRINZIDE, ZESTORETIC) 20-25 mg per tablet Take 1 tablet by mouth once daily. gemfibrozil (LOPID) 600 mg tablet Take 600 mg by mouth twice daily. valACYclovir (VALTREX) 1 gram tab Take 1 tablet by mouth once daily. prednisoLONE acetate (PRED FORTE, ECONOPRED PLUS) 1 % ophthalmic suspension Use 1 Drop in the left eye twice daily. VIBERZI 100 mg tab TAKE 1 TABLET TWICE DAILY FOR 30 DAYS naproxen (NAPROSYN) 500 mg tablet Take 500 mg by mouth twice daily. No current facility-administered medications for this visit. ALLERGIES: Bee Venom Protein (Honey Bee), Meloxicam, and Penicillins PERSONAL HISTORY: Social History Tobacco Use Smoking status: Former Smokeless tobacco: Former Quit date: 05/2023 Vaping Use Vaping status: Never Used Substance Use Topics Alcohol use: Yes Comment: social Drug use: Never FAMILY HISTORY Problem Relation Age of Onset Hypertension Mother COPD Mother No Known Problems Brother The review of systems data was entered by the nurse and reviewed by me Nursing Notes: Shelbi Durant RN 07/27/2024 4:09 PM Signed REVIEW OF SYSTEMS: General: The patient denies fatigue, denies weight loss, denies weight gain, denies feeling hot, and denies feelings of cold. Eyes: The patient denies glaucoma, denies eye injury/surgery, does not wear glasses or contacts. Ear/Nose/Throat: The patient NOTES allergies, denies hayfever, denies ear infections, and denies bloody noses. Cardiovascular: The patient denies chest pain, denies heart disease, NOTES high blood pressure,denies cardiac stent, denies prior heart attack, denies irregular heart beat, NOTES high cholesterol, denies poor circulation, denies heart failure, other cardiac issues, denies claudication, denies cold feet, denies peripheral arterial stent. Respiratory: The patient denies tuberculosis, denies pneumonia, denies frequent cough, denies pulmonary embolism, denies shortness of breath, and denies coughing up blood. Gastrointestinal: The patient denies difficulty swallowing, denies acid reflux, denies ulcers, denies vomiting, denies jaundice/hepatitis, denies gallbladder problems, denies black or tarry stools, denies hemorrhoids, denies bleeding from rectum, denies diverticulitis, denies constipation, denies diarrhea, denies loss of stool control, and NOTES hernias. Kidney/Bladder: The patient denies kidney stones, denies urine infections, and denies bloody urine. Skin: The patient denies a history of skin cancer, denies bleeding/changing moles, and denies a history of skin rash. Neurologic: The patient denies a history of epilepsy/convulsions, denies headaches, denies head/spinal injuries, and denies stroke/TIA. Psychiatric: The patient denies psychiatric medications, denies depression, and denies voices, denies substance abuse. Endocrine: The patient denies thyroid disorders, denies diabetes, and denies hormonal problems. Hematologic: The patient denies a history of bruising, denies bleeding, and denies anemia, denies blood clots. Infections: The patient denies a history of measles and mumps, denies rheumatic fever, and denies sexually transmitted diseases. Musculoskeletal: The patient denies back pain/injury, denies back problems, denies sciatica, denies knee/foot trouble, denies arthritis, or denies gout. When was patient's last Mammogram screening? N/A Last Colonoscopy: None Shelbi Durant RN PHYSICAL EXAMINATION: General: The patient is 53 year old male, well nourished, well hydrated in no acute distress. The patient is oriented to time, place, and person. VITALS: Pulse 100, temperature 36.3 ?C (97.4 ?F), height 172.7 cm (5' 8"), weight 124.5 kg (274 lb 6.4 oz), SpO2 100%. Body mass index is 41.72 kg/m?. Head: Normal cephalic, atraumatic Eyes: pupils are equally round, sclera are clear/anicteric Neck is supple with no tracheal deviation Cardiac: normal heart sounds, regular Respiratory: Normal respiratory excursion and pattern. Abdominal exam: soft, obese, and benign, rectus diastasis present, reducible umbilical hernia Extremities: no clubbing, cyanosis or edema. Neuro: non focal Psych: normal mood Assessment IMPRESSION: umbilical hernia, morbid obesity PLAN: I have discussed the above with the patient. I have offered umbilical hernia repair, however, I explained to patient that I will not use mesh.. I have explained the procedure to the patient. I have explained that since patient has BMI > 40, he will have a high likelihood of recurrence I have counseled the patient as to the risks of the procedure, including but not limited to: infection, bleeding, injury to any blood vessels/nerves, scar tissue, injury to any intrabdominal organs, injury to bowel/bladder, intraabdominal abscess/bleeding, recurrence of hernia due to patient's body habitus, wound infections, complications of anesthesia, etc. - the patient understands. Patient will think about his options. I have rec'd weight loss, to ensure decreased risk of recurrence. I will place consult to bariatric medicine for evaluation. Patient encouraged to return to clinic if any worsening signs/symptoms The patient acknowledges the above. I have answered all questions to the patient?s satisfaction and the patient has no further questions. I have confirmed and edited as necessary, the PFSH and ROS obtained by others. . Diagnoses: (K42.9) Umbilical hernia without obstruction or gangrene (Z68.41) BMI 40.0-44.9, adult (HCC) (M62.08) Rectus diastasis Medical Decision Making: Problems: Low: Stable chronic illness Risk: Moderate: Moderate risk from testing/treatment Medical Decision Making Level: 3 - Low Ayesha Amaral MD ALLERGIES DATE TYPE / CODE NAME / CODE REACTION SEVERITY SOURCE 07/21/2024 DRUG INGREDI/4906715 03(SNOMED CT) BEE VENOM PROTEIN (HONEY BEE) UNKNOWN [facility] 09/24/2016 DRUG INGREDI/0799534 03(SNOMED CT) MELOXICAM RASH [facility] 09/24/2016 Drug Class/815932146 (SNOMED CT) PENICILLINS UNKNOWN [facility] ENCOUNTERS ADMIT/DISCHARGE ACCOUNT NUMBER ADMITTING ENCOUNTER CLASS LOC ATION SOURCE 08/27/2024/ 4 [id number] Ambulatory [facility] Hospital[facility] ing:[facility] 07/27/2024/ 4 [id number] Ambulatory [facility] HospitalBuild ing:WOGS [facility] PAYERS ENCOUNTER GUARANTOR PAYER SUBSCRIBER SOURCE 08/27/2024 Primary Insuranc e:[facility] UMR CHOICE PLUSPolicy Number: [id number] Date:1251-04-34Jamj Name:Kali BOSTONB: [id number] [place] [address] [facility] 07/27/2024 Primary Insuranc e:[facility] UMR CHOICE PLUSPolicy Number: [id number] Date:[id number] Name:Kali NEWTON: [id number] [place] [address] [facility]
[2025-05-29 09:14] LABS: Hematocrit 50.2 % (40-54); Hemoglobin 17.1 g/dL (13.0-16.5); Immature Granulocytes Count 0.050 X10^3/uL (0.0-0.0); Mean Corp Hgb Conc 34.1 g/dL (32-36); Mean Corpuscular Volume 89.0 fL (80-94); Mean Platelet Vol. 9.7 fl (6.2-12.0); NRBC Flagged by Analyzer 0 % (0-5); Platelet Count 291 K/mm3 (150-450); RBC Distribution Width CV 13.6 % (11.6-14.6); RBC Distribution Width SD 44.1 fl (35.1-43.9); Red Blood Count 5.64 M/mm3 (4.6-6.2); White Blood Count 9.1 K/mm3 (4.4-11.0)
[2025-05-29 09:40] LABS: AST(SGOT) 40 U/L (<=37); Alanine Aminotransfer ALT/SGPT 47 U/L (<=46); Albumin, Serum 4.2 g/dL (3.5-5.0); Alkaline Phosphatase 67 U/L (40-129); Anion Gap 13 (5-15); BUN 16 mg/dL (4-19); BUN/Creat Ratio 20.1 RATIO (10-20); Calcium,Total 9.3 mg/dL (7.6-11.0); Carbon Dioxide 23.2 mmol/L (21.0-32.0); Chloride 101 mmol/L (98-108); Cholesterol 161 mg/dL (<=200); Globulin 3.3 g/dL (2.2-4.2); Glucose 120 mg/dL (70-99); Low Density Lipoprotein Calc. 44 mg/dL; Potassium 4.3 mmol/L (3.3-5.1); Triglycerides 436 mg/dL; Very Low Density Lipoprotein 87 mg/dL (5-40); cholesterol:hdl ratio screen 5.31
== END | disposition home or self-care (01) ==
PROVIDERS: PCP Family Medicine; Referring Provider Family Medicine; Visit Provider Family Medicine
DX: I10 Essential (primary) hypertension (principal); E66.89 Other obesity not elsewhere classified
CPT/HCPCS: 36415; 80053; 80061; 84403; 85025